=== PATIENT | male | born 1970 | race Caucasian/White ===

== ENCOUNTER 2018-04-11 14:10 | Observation (INO) | payer OTHER, BC ==
[2018-04-11] MEDS ORDERED: Sodium Chloride 0.9% 2.5 ML Syringe FLUSH PRN (14:19)
[2018-04-11] MEDS ORDERED: Ketorolac 30 MG/ML SDV IVPUSH ONE (14:19)
[2018-04-11] MEDS ORDERED: Sodium Chloride 0.9% 1,000 ML IV ONE ×2 (14:19→15:41)
[2018-04-11] MEDS ORDERED: Sodium Chloride 0.9% 10 ML Syringe FLUSH PRN (14:19)
--- NOTE | 2018-04-11 14:23 | EDM.PDOC ---
ED HPI GENERAL MEDICAL PROBLEM - General Chief Complaint: Respiratory Problem Stated Complaint: [place] Time Seen by Provider: 04/11/18 14:15 - History of Present Illness INITIAL COMMENTS - FREE TEXT/NARRATIVE: HISTORY AND PHYSICAL: History of present illness: The patient is a 47-year-old male who was sent from the [facility] for further evaluation as he presented there to be seen for shortness of breath. The patient 's past medical history is significant for allergies for which she takes medications tobacco dependence (chew) and a history of alcohol abuse which he quit in 2016. The patient presented there is saying that he had sinus congestion on 4 days ago with extreme generalized weakness and body aches, and he has had intermittent fevers chills and cough all worse when he's laying down trying to sleep. He used [id number] medications and did feel some improvement and then this morning felt like he had a recurrence of the fever weakness with a sore throat along with a cough and felt like he just couldn't catch his breath. He also was saying that he has been pushing fluids and is tolerating them but and he has had decreased urine output body aches and leg cramps. He also tells me that he has had intermittent vomiting and every time he tries to eat solid food is when he vomits and has explosive diarrhea. He says his weakness is generalized and nonfocal and he has not dizzy or lightheaded but feels very drained and in fact on Wednesday and Wednesday slept most of the day. On their evaluation they noticed that he was not hypoxic but he was tachycardic and they did an EKG showing sinus tachycardia. His blood pressure was normal as was his respiratory rate. He says that when he coughs he does get chest pain but he does not have chest pain without the cough. Of note he also was in [place] recently and returned to the [place] area one week ago. Has no leg pain or swelling. Patient also tells me that when he tries to take deep breaths it triggers a cough which then causes pain and he does not want that to happen so he is taking very shallow breaths. He says he just feels so drained and short of breath with any activity. He says he is making urine and it is not dark in color and there is no hematuria or dysuria. He has no head or neck pain but he does have lower back pain. He denies any flank pain and currently says that his abdomen is not hurting him but he has nausea. Also of note the patient did not get his influenza vaccination this year Review of systems: As per history of present illness and below otherwise all systems reviewed and negative. Past medical history: As per history of present illness and as reviewed below otherwise noncontributory. Surgical history: As per history of present illness and as reviewed below otherwise noncontributory. Social history: No reported history of drug or alcohol abuse. Family history: As per history of present illness and as reviewed below otherwise noncontributory. Physical exam: General: Well-developed well-nourished man who is speaking clearly in the ED without breathlessness or hoarse or muffled voice. Vital signs are noted by me HEENT: Atraumatic, normocephalic, pupils reactive, negative for conjunctival pallor or scleral icterus, mucous membranes moist, throat clear of exudates and uvula is midline and there is only minimal posterior oropharyngeal erythema, there is some anterior cervical adenopathy without posterior adenopathy or nuchal rigidity, there is no sinus tenderness,, neck supple, nontender, trachea midline. Lungs: Sounds are diminished throughout all lung lin but more in the left base and he does not take a very deep breath and exhibits poor effort as he is scared he is going to start coughing, there is no overt wheezing or stridor and no work of breathing, breath sounds equal bilaterally, chest nontender. Heart: S1S2, regular rhythm and slightly tachycardic on my evaluation, negative for clicks, rubs, or JVD. Abdomen: Soft, nondistended, nontender. Negative for masses or hepatosplenomegaly. Negative for costovertebral tenderness. Pelvis: Stable nontender. Genitourinary: Deferred. Rectal: Deferred. Extremities: Atraumatic, negative for cords or calf pain. Neurovascular unremarkable. No pedal edema or leg asymmetry Neuro: Awake, alert, oriented. Cranial nerves II through XII unremarkable. Cerebellum unremarkable. Motor and sensory unremarkable throughout. Exam nonfocal. Diagnostics: EKG influenza swab CBC CMP lactic acid chest x-ray UA stool for culture rapid strep troponin CTA of the chest Therapeutics: IV O2 monitor IV fluids Toradol Zofran duo neb Levaquin Reevaluation the patient is moving air much better and it is no longer diminished in the left base and his O2 sats are 97% with deep breaths. When he is sitting and hypoventilating, because he is still afraid to take a deep breath as it may trigger a cough, he has sats about 93-94%. I discussed with the patient in trying to give me a stool sample due to the diarrhea which he has described as brown in color like chocolate and is soft with some watery component. We also discussed proceeding to do CTA of the chest to rule out an occult pneumonia and any PE although his symptoms do not seem characteristics of a PE and seem more consistent with a viral illness Patient and at bedside are aware of the CTA results and we are still awaiting the lactic acid as they were lab complications with getting that test performed. The patient also give us a stool sample which looked like soft mushy brown stool not watery or grossly abnormal in color or character. On my reevaluation currently the patient is still only satting 92% on room air is we' ll place him on several liters of oxygen and I will call the hospitalist and place him on antibiotics. I will give him a dose of Levaquin here. And in light of his presentation and his clinical dehydration and overall physical presence I will observe him overnight and he is agreeable. 1735: Case was discussed with Dr. Houston who agrees with Levaquin dosing an observation admission. He is aware that we sent a stool for culture and will follow-up that result on the floor. Impression: Pneumonia, clinical dehydration Definitive disposition and diagnosis as appropriate pending reevaluation and review of above. general Pain Score (Numeric/FACES): 4 - Related Data Allergies Allergy/AdvReac Type Severity Reaction Status Date / Time No Known Allergies Allergy Verified 04/16/14 09:57 Home Meds: Home Meds Cetirizine HCl [Allergy Relief] 1 tab PO DAILY 04/16/14 [History] Past Medical History Psychiatric History: Reports: Addiction, Other (See Below) 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 - Past Surgical History GI Surgical History: Reports: Hernia Repair/Other ED ROS GENERAL - Review of Systems Review Of Systems: ROS reveals no pertinent complaints other than HPI. ED EXAM, GENERAL - Physical Exam Exam: See Below (See dictation) Course - Vital Signs Last Recorded V/S: Last Vital Signs Temp 37.3 C 04/11/18 14:17 Pulse 108 H 04/11/18 15:46 Resp 18 04/11/18 15:46 BP 111/82 04/11/18 15:46 Pulse Ox 95 04/11/18 17:27 - Orders/Labs/Meds Orders: Active Orders 24 hr Category Date Time Status Patient Status [ADT] Stat ADT 04/11/18 17:35 Ordered Cardiac Monitoring [RC] . DIRECTED Care 04/11/18 14:17 Active EKG Documentation Completion [RC] STAT Care 04/11/18 14:18 Active Oxygen Therapy, ED [RC] ASDIRECTED Care 04/11/18 14:17 Active Pulse Oximetry [RC] ASDIRECTED Care 04/11/18 14:18 Active RT Aerosol Therapy [RC] ASDIRECTED Care 04/11/18 14:29 Active Chest 2V [CR] Stat Exams 04/11/18 14:18 Taken CULTURE STOOL + CAMPY+SHIGATOX [RM] Stat Lab 04/11/18 17:12 Received CULTURE STREP A CONFIRMATION [RM] Stat Lab 04/11/18 14:40 Results STREP SCRN A RAPID W CULT CONF [RM] Stat Lab 04/11/18 14:40 Results Levofloxacin/Dextrose 5%-Water [Levaquin in D5W 750 MG/ Med 04/11/18 17:34 Ordered 150 ML] 750 mg Premix Bag 1 bag IV ONETIME Sodium Chloride 0.9% @ 150 MLS/HR (1,000ml) Med 04/11/18 17:45 Ordered Sodium Chloride 0.9% [Normal Saline] 1,000 ml IV ASDIRECTED Sodium Chloride 0.9% [Saline Flush] Med 04/11/18 14:19 Active 10 ml FLUSH ASDIRECTED PRN Sodium Chloride 0.9% [Saline Flush] Med 04/11/18 14:19 Active 2.5 ml FLUSH ASDIRECTED PRN Saline Lock Insert [OM.PC] Stat Oth 04/11/18 14:17 Ordered Medication Orders Sodium Chloride (Saline Flush) 10 ml FLUSH ASDIRECTED PRN PRN Reason: Keep Vein Open Sodium Chloride (Saline Flush) 2.5 ml FLUSH ASDIRECTED PRN PRN Reason: Keep Vein Open Labs: Laboratory Tests 03/05/2704/11/18 04/11/18 Range/Units 14:35 14:35 14:35 WBC 4.98 (4.0-11.0) K/uL RBC 4.78 (4.50-5.90) M/uL Hgb 15.3 (13.0-17.0) g/dL Hct 43.7 (38.0-50.0) % MCV 91.4 (80.0-98.0) fL MCH 32.0 (27.0-32.0) pg MCHC 35.0 (31.0-37.0) g/dL RDW Std Deviation 43.8 (28.0-62.0) fl RDW Coeff of Jean 13 (11.0-15.0) % Plt Count 136 L (150-400) K/uL MPV 10.30 (7.40-12.00) fL Neut % (Auto) 63.2 (48.0-80.0) % Lymph % (Auto) 23.5 (16.0-40.0) % [place] % (Auto) 12.9 (0.0-15.0) % Eos % (Auto) 0.2 (0.0-7.0) % Baso % (Auto) 0.2 (0.0-1.5) % Neut # (Auto) 3.2 (1.4-5.7) K/uL Lymph # (Auto) 1.2 (0.6-2.4) K/uL [place] # (Auto) 0.6 (0.0-0.8) K/uL Eos # (Auto) 0.0 (0.0-0.7) K/uL Baso # (Auto) 0.0 (0.0-0.1) K/uL Nucleated RBC % 0.0 /100WBC Nucleated RBCs # 0 K/uL Lactate 0.9 (0.20-2.00) mmol/L Sodium 141 (136-148) mmol/L Potassium 3.6 (3.5-5.1) mmol/L Chloride 103 (98-107) mmol/L Carbon Dioxide 24.6 (21.0-32.0) mmol/L BUN 11 (7.0-18.0) mg/dL Creatinine 1.2 (0.8-1.3) mg/dL Est Cr Clr Drug Dosing 86.58 mL/min Estimated GFR (MDRD) > 60.0 ml/min Glucose 88 (74-106) mg/dL Calcium 8.6 (8.5-10.1) mg/dL Total Bilirubin 0.4 (0.2-1.0) mg/dL AST 45 H (15-37) IU/L ALT 48 (14-63) IU/L Alkaline Phosphatase 81 (46-116) U/L Troponin I (0.000-0.056) ng/mL Total Protein 6.9 (6.4-8.2) g/dL Albumin 4.1 (3.4-5.0) g/dL Globulin 2.8 (2.6-4.0) g/dL Albumin/Globulin Ratio 1.5 (0.9-1.6) Urine Color Urine Appearance Urine pH (5.0-8.0) Ur Specific [place] (1.001-1.035) Urine Protein (NEGATIVE) mg/dL Urine Glucose (UA) (NEGATIVE) mg/dL Urine Ketones (NEGATIVE) mg/dL Urine Occult Blood (NEGATIVE) Urine Nitrite (NEGATIVE) Urine Bilirubin (NEGATIVE) Urine Urobilinogen (<2.0) EU/dL Ur Leukocyte Esterase (NEGATIVE) Urine RBC (0-2/HPF) Urine WBC (0-5/HPF) Ur Epithelial Cells (NONE-FEW) Urine Bacteria (NEGATIVE) Urine Mucus (NONE-MOD) 04/11/18 04/11/18 Range/Units 14:35 15:40 WBC (4.0-11.0) K/uL RBC (4.50-5.90) M/uL Hgb (13.0-17.0) g/dL Hct (38.0-50.0) % MCV (80.0-98.0) fL MCH (27.0-32.0) pg MCHC (31.0-37.0) g/dL RDW Std Deviation (28.0-62.0) fl RDW Coeff of Jean (11.0-15.0) % Plt Count (150-400) K/uL MPV (7.40-12.00) fL Neut % (Auto) (48.0-80.0) % Lymph % (Auto) (16.0-40.0) % [place] % (Auto) (0.0-15.0) % Eos % (Auto) (0.0-7.0) % Baso % (Auto) (0.0-1.5) % Neut # (Auto) (1.4-5.7) K/uL Lymph # (Auto) (0.6-2.4) K/uL [place] # (Auto) (0.0-0.8) K/uL Eos # (Auto) (0.0-0.7) K/uL Baso # (Auto) (0.0-0.1) K/uL Nucleated RBC % /100WBC Nucleated RBCs # K/uL Lactate (0.20-2.00) mmol/L Sodium (136-148) mmol/L Potassium (3.5-5.1) mmol/L Chloride (98-107) mmol/L Carbon Dioxide (21.0-32.0) mmol/L BUN (7.0-18.0) mg/dL Creatinine (0.8-1.3) mg/dL Est Cr Clr Drug Dosing mL/min Estimated GFR (MDRD) ml/min Glucose (74-106) mg/dL Calcium (8.5-10.1) mg/dL Total Bilirubin (0.2-1.0) mg/dL AST (15-37) IU/L ALT (14-63) IU/L Alkaline Phosphatase (46-116) U/L Troponin I < 0.050 (0.000-0.056) ng/mL Total Protein (6.4-8.2) g/dL Albumin (3.4-5.0) g/dL Globulin (2.6-4.0) g/dL Albumin/Globulin Ratio (0.9-1.6) Urine Color YELLOW Urine Appearance CLEAR Urine pH 5.5 (5.0-8.0) Ur Specific [place] >= 1.030 (1.001-1.035) Urine Protein TRACE H (NEGATIVE) mg/dL Urine Glucose (UA) NEGATIVE (NEGATIVE) mg/dL Urine Ketones 15 H (NEGATIVE) mg/dL Urine Occult Blood SMALL H (NEGATIVE) Urine Nitrite NEGATIVE (NEGATIVE) Urine Bilirubin NEGATIVE (NEGATIVE) Urine Urobilinogen 0.2 (<2.0) EU/dL Ur Leukocyte Esterase NEGATIVE (NEGATIVE) Urine RBC 0-2 (0-2/HPF) Urine WBC 0-1 (0-5/HPF) Ur Epithelial Cells RARE (NONE-FEW) Urine Bacteria FEW (NEGATIVE) Urine Mucus LIGHT (NONE-MOD) Meds: Medications Generic Name Dose Route Start Last Admin Trade Name Mar PRN Reason Stop Dose Admin Sodium Chloride 10 ml 04/11/18 14:19 Saline Flush FLUSH ASDIRECTED PRN Keep Vein Open Sodium Chloride 2.5 ml 04/11/18 14:19 Saline Flush FLUSH ASDIRECTED PRN Keep Vein Open Discontinued Medications Generic Name Dose Route Start Last Admin Trade Name Mar PRN Reason Stop Dose Admin Albuterol/Ipratropium 3 ml 04/11/18 14:29 04/11/18 14:40 Duoneb 3.0-0.5 Mg/3 Ml NEB 04/11/18 14:30 3 ml ONETIME ONE Administration Sodium Chloride 1,000 mls @ 999 mls/hr 04/11/18 14:19 04/11/18 14:40 Normal Saline IV 04/11/18 15:19 999 mls/hr STAT ONE Administration Sodium Chloride 1,000 mls @ 999 mls/hr 04/11/18 15:41 04/11/18 15:45 Normal Saline IV 04/11/18 16:41 999 mls/hr STAT ONE Administration Iopamidol 50 ml 04/11/18 16:51 04/11/18 16:51 Isovue-370 (76%) IV 04/11/18 16:52 50 ml ONETIME ONE Administration Ketorolac Tromethamine 30 mg 04/11/18 14:19 04/11/18 14:48 Toradol IVPUSH 04/11/18 14:20 30 mg ONETIME ONE Administration Ondansetron HCl 4 mg 04/11/18 14:29 04/11/18 14:48 Zofran IVPUSH 04/11/18 14:30 4 mg ONETIME ONE Administration Departure - Departure Time of Disposition: 17:36 Disposition: Refer to Observation Condition: Good Clinical Impression: Pneumonia Qualifiers: Pneumonia type: due to unspecified organism Laterality: right Lung location: lower lobe of lung Qualified Code(s): J18.1 - Lobar pneumonia, unspecified organism - Discharge Information Referrals: [facility] [Primary Care Provider] - Forms: ED Department Discharge - My Orders Last 24 Hours: My Active Orders 04/11/18 14:17 Cardiac Monitoring [RC] . DIRECTED Oxygen Therapy, ED [RC] ASDIRECTED Saline Lock Insert [OM.PC] Stat 04/11/18 14:18 EKG Documentation Completion [RC] STAT Pulse Oximetry [RC] ASDIRECTED Chest 2V [CR] Stat 04/11/18 14:19 Sodium Chloride 0.9% [Saline Flush] 10 ml FLUSH ASDIRECTED PRN Sodium Chloride 0.9% [Saline Flush] 2.5 ml FLUSH ASDIRECTED PRN 04/11/18 14:29 RT Aerosol Therapy [RC] ASDIRECTED 04/11/18 14:40 CULTURE STREP A CONFIRMATION [RM] Stat STREP SCRN A RAPID W CULT CONF [RM] Stat 04/11/18 17:12 CULTURE STOOL + CAMPY+SHIGATOX [RM] Stat 04/11/18 17:34 Levofloxacin/Dextrose 5%-Water [Levaquin in D5W 750 MG/150 ML] 750 mg Premix Bag 1 bag IV ONETIME 04/11/18 17:35 Patient Status [ADT] Stat 04/11/18 17:45 Sodium Chloride 0.9% @ 150 MLS/HR (1,000ml) Sodium Chloride 0.9% [Normal Saline ] 1,000 ml IV ASDIRECTED - Assessment/Plan Last 24 Hours: My Active Orders 04/11/18 14:17 Cardiac Monitoring [RC] . DIRECTED Oxygen Therapy, ED [RC] ASDIRECTED Saline Lock Insert [OM.PC] Stat 04/11/18 14:18 EKG Documentation Completion [RC] STAT Pulse Oximetry [RC] ASDIRECTED Chest 2V [CR] Stat 04/11/18 14:19 Sodium Chloride 0.9% [Saline Flush] 10 ml FLUSH ASDIRECTED PRN Sodium Chloride 0.9% [Saline Flush] 2.5 ml FLUSH ASDIRECTED PRN 04/11/18 14:29 RT Aerosol Therapy [RC] ASDIRECTED 04/11/18 14:40 CULTURE STREP A CONFIRMATION [RM] Stat STREP SCRN A RAPID W CULT CONF [RM] Stat 04/11/18 17:12 CULTURE STOOL + CAMPY+SHIGATOX [RM] Stat 04/11/18 17:34 Levofloxacin/Dextrose 5%-Water [Levaquin in D5W 750 MG/150 ML] 750 mg Premix Bag 1 bag IV ONETIME 04/11/18 17:35 Patient Status [ADT] Stat 04/11/18 17:45 Sodium Chloride 0.9% @ 150 MLS/HR (1,000ml) Sodium Chloride 0.9% [Normal Saline ] 1,000 ml IV ASDIRECTED
[2018-04-11] MEDS ORDERED: Albuterol/Ipratropium 3.0-0.5 MG/3 ML Neb Soln NEB ONE (14:29)
[2018-04-11] MEDS ORDERED: Ondansetron 4 MG/2 ML SDV IVPUSH ONE (14:29)
[2018-04-11 15:15] LABS: CHLORIDE,CL 103 mmol/L (98-107); SODIUM,NA 141 mmol/L (136-148)
[2018-04-11] MEDS ORDERED: Iopamidol 755 MG/ML 50 ML Bottle IV ONE (16:51)
--- NOTE | 2018-04-11 17:22 | CT ---
INDICATION: Shortness of breath. Rule out occult pneumonia or pulmonary embolism. COMPARISON: None available TECHNIQUE: CT examination of the chest was performed with the uneventful intravenous administration of 50 cc of Isovue 370 while 3 mm thick axial sections were obtained through the pulmonary arteries. Please note that all CT scans at this facility use dose modulation, iterative reconstruction, and/or weight-based dosing when appropriate to reduce radiation dose to as low as reasonably achievable. FINDINGS: : There is no sign of pulmonary embolism, with normal enhancement and branching of the pulmonary arteries. There is mild patchy infiltrate in the posterior-lateral right lung base, which could be an area of early pneumonia. There is mild linear density in the left lung base consistent with atelectasis. There is no sign of mediastinal or hilar mass or adenopathy. The heart and great vessels are normal in appearance. There is no sign of SUPRACLAVICULAR/AXILLARY mass or adenopathy. The visualized superior liver is seem to have a low-density region in the dome of the right lobe of the liver, in the anterior segment, segment 8 measuring at least 1.9 centimeters. This is not completely examined on today`s study. The appearance is nonspecific, but this could simply be a cyst. The rest of the visualized superior liver is normal in appearance. The visualized superior spleen is normal in appearance. There is mild scoliosis of the upper lumbar spine convex towards the left. IMPRESSION: No sign of pulmonary embolism. Mild patchy infiltrate in the posterior right lung base which could be an early area of right lower lobe pneumonia. Mild linear density in the posterior left lung base consistent with atelectasis. Please note that all CT scans at this facility use dose modulation, iterative reconstruction, and/or weight-based dosing when appropriate to reduce radiation dose to as low as reasonably achievable. Dictated by Radames Tobar MD @ Apr 11 2018 5:13PM Signed by Dr. Radames Tobar @ Apr 11 2018 5:19PM
[2018-04-11] MEDS ORDERED: Levofloxacin/Dextrose 5%-Water 750 MG in Premix Bag 1 BAG IV ONE (17:34)
[2018-04-11] MEDS ORDERED: Sodium Chloride 0.9% 1,000 ML IV SCH (17:45)
[2018-04-11] MEDS ORDERED: Temazepam 15 MG Cap PO PRN (18:34)
[2018-04-11] MEDS ORDERED: Ondansetron 4 MG Tab.DIS PO PRN (18:34)
[2018-04-11] MEDS ORDERED: Albuterol/Ipratropium 3.0-0.5 MG/3 ML Neb Soln NEB PRN (18:34)
[2018-04-11] MEDS ORDERED: Docusate Sodium 100 MG Cap PO PRN (18:34)
--- NOTE | 2018-04-11 18:38 | PCM.HP ---
H&P History of Present Illness - General Date of Service: 04/11/18 Admit Problem/Dx: Admission Diagnosis/Problem Admission Diagnosis/Problem Pneumonia Source of Information: Patient, Family History Limitations: Reports: No Limitations - History of Present Illness Initial Comments - Free Text/Narative: The patient is 47-year-old gentleman who presented to the emergency department after being referred to the emergency department from the [place] [facility]. Patient reports that for the past week he has not been feeling well. The patient says that he got back from a trip and had been exposed to sick people. The patient had traveled from [place]. 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 The patient also has had fever and chills while at home. He said at one point he completely soaked through his clothes while in his truck. The patient has been complaining of severe shortness of breath as well. He reports that he has been unable to walk more than 10-15 feet without having to stop to rest. He also says that he feels dehydrated. The patient had a CT scan which reported mild patchy infiltrate in the posterior lateral right lung base consistent with an early pneumonia. Was no signs of PE. The patient has no other complaints at the present time. Onset of Symptoms: Reports: Gradual Duration of Symptoms: Reports: Week(s): Location: Reports: Chest Severity: Moderate Improves with: Reports: Rest Worsens with: Reports: Movement Context: Reports: Sick Contact, Travel Associated Symptoms: Reports: Diaphoresis, Fever/Chills, Loss of Appetite, Other (Diarrhea) general Pain Score (Numeric/FACES): 4 - Related Data Allergies/Adverse Reactions: Allergies Allergy/AdvReac Type Severity Reaction Status Date / Time No Known Allergies Allergy Verified 04/16/14 09:57 Home Medications: Home Meds Cetirizine HCl [Allergy Relief] 1 tab PO DAILY 04/16/14 [History] Past Medical History HEENT History: Reports: Allergic Rhinitis Cardiovascular History: Reports: None Respiratory History: Reports: None Gastrointestinal History: Reports: None Genitourinary History: Reports: None Musculoskeletal History: Reports: None Neurological History: Reports: Head Trauma Psychiatric History: Reports: Addiction, Other (See Below) 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 Endocrine/Metabolic History: Reports: None Hematologic History: Reports: None Immunologic History: Reports: None Oncologic (Cancer) History: Reports: None Dermatologic History: Reports: None - Infectious Disease History Infectious Disease History: Reports: None - Past Surgical History GI Surgical History: Reports: Hernia Repair/Other Social & Family History - Family History Family Medical History: Noncontributory - Tobacco Use Smoking Status *Q: Current Every Day Smoker Tobacco Use Within Last Twelve Months: Smokeless Tobacco Years of Tobacco use: 34 Packs/Tins Daily: 1 Second Hand Smoke Exposure: No - Caffeine Use Caffeine Use: Reports: Coffee, Soda - Recreational Drug Use Recreational Drug Use: No - Living Situation & Occupation Living situation: Reports: , with Spouse Occupation: Employed H&P Review of Systems - Review of Systems: Review Of Systems: See Below General: Reports: Fever, Chills, Weakness, Diaphoresis HEENT: Reports: Headaches Pulmonary: Reports: Shortness of Breath, Cough Cardiovascular: Reports: No Symptoms Gastrointestinal: Reports: Diarrhea Genitourinary: Reports: No Symptoms Musculoskeletal: Reports: Muscle Pain Skin: Reports: No Symptoms Psychiatric: Reports: No Symptoms Neurological: Reports: No Symptoms Hematologic/Lymphatic: Reports: No Symptoms Immunologic: Reports: No Symptoms Exam - Exam Exam: See Below - Vital Signs Vital Signs: Last Vital Signs Temp 37.4 C 04/11/18 18:10 Pulse 98 04/11/18 18:10 Resp 16 04/11/18 18:10 BP 120/82 04/11/18 18:10 Pulse Ox 94 L 04/11/18 18:10 Weight: 97.114 kg - Exam Quality Assessment: No: Supplemental Oxygen General: Alert, Oriented, Cooperative, Mild Distress HEENT: Conjunctiva Clear, EACs Clear, EOMI, Mucosa Moist & Ubly, Nares Patent, Posterior Pharynx Clear, PERRLA Neck: Supple, Trachea Midline Lungs: Normal Respiratory Effort, Rales (Right lower lobe) Cardiovascular: Regular Rate, Regular Rhythm GI/Abdominal Exam: Normal Bowel Sounds, Soft, Non-Tender, No Distention. No: Guarding, Rigid, Rebound (Male) Exam: Deferred Rectal (Males) Exam: Deferred Back Exam: Normal Inspection, Full Range of Motion Extremities: Normal Inspection, Normal Range of Motion, No Pedal Edema Skin: Warm, Dry, Intact Neurological: Cranial Nerves Intact Psychiatric: Alert, Normal Affect, Normal Mood - Patient Data Lab Results Last 24 hrs: Laboratory Results - last 24 hr 04/11/18 04/11/18 04/11/18 Range/Units 14:35 14:35 14:35 WBC 4.98 (4.0-11.0) K/uL RBC 4.78 (4.50-5.90) M/uL Hgb 15.3 (13.0-17.0) g/dL Hct 43.7 (38.0-50.0) % MCV 91.4 (80.0-98.0) fL MCH 32.0 (27.0-32.0) pg MCHC 35.0 (31.0-37.0) g/dL RDW Std Deviation 43.8 (28.0-62.0) fl RDW Coeff of Jean 13 (11.0-15.0) % Plt Count 136 L (150-400) K/uL MPV 10.30 (7.40-12.00) fL Neut % (Auto) 63.2 (48.0-80.0) % Lymph % (Auto) 23.5 (16.0-40.0) % [place] % (Auto) 12.9 (0.0-15.0) % Eos % (Auto) 0.2 (0.0-7.0) % Baso % (Auto) 0.2 (0.0-1.5) % Neut # (Auto) 3.2 (1.4-5.7) K/uL Lymph # (Auto) 1.2 (0.6-2.4) K/uL [place] # (Auto) 0.6 (0.0-0.8) K/uL Eos # (Auto) 0.0 (0.0-0.7) K/uL Baso # (Auto) 0.0 (0.0-0.1) K/uL Nucleated RBC % 0.0 /100WBC Nucleated RBCs # 0 K/uL Lactate 0.9 (0.20-2.00) mmol/L Sodium 141 (136-148) mmol/L Potassium 3.6 (3.5-5.1) mmol/L Chloride 103 (98-107) mmol/L Carbon Dioxide 24.6 (21.0-32.0) mmol/L BUN 11 (7.0-18.0) mg/dL Creatinine 1.2 (0.8-1.3) mg/dL Est Cr Clr Drug Dosing 86.58 mL/min Estimated GFR (MDRD) > 60.0 ml/min Glucose 88 (74-106) mg/dL Calcium 8.6 (8.5-10.1) mg/dL Total Bilirubin 0.4 (0.2-1.0) mg/dL AST 45 H (15-37) IU/L ALT 48 (14-63) IU/L Alkaline Phosphatase 81 (46-116) U/L Troponin I (0.000-0.056) ng/mL Total Protein 6.9 (6.4-8.2) g/dL Albumin 4.1 (3.4-5.0) g/dL Globulin 2.8 (2.6-4.0) g/dL Albumin/Globulin Ratio 1.5 (0.9-1.6) Urine Color Urine Appearance Urine pH (5.0-8.0) Ur Specific [place] (1.001-1.035) Urine Protein (NEGATIVE) mg/dL Urine Glucose (UA) (NEGATIVE) mg/dL Urine Ketones (NEGATIVE) mg/dL Urine Occult Blood (NEGATIVE) Urine Nitrite (NEGATIVE) Urine Bilirubin (NEGATIVE) Urine Urobilinogen (<2.0) EU/dL Ur Leukocyte Esterase (NEGATIVE) Urine RBC (0-2/HPF) Urine WBC (0-5/HPF) Ur Epithelial Cells (NONE-FEW) Urine Bacteria (NEGATIVE) Urine Mucus (NONE-MOD) 04/11/18 04/11/18 Range/Units 14:35 15:40 WBC (4.0-11.0) K/uL RBC (4.50-5.90) M/uL Hgb (13.0-17.0) g/dL Hct (38.0-50.0) % MCV (80.0-98.0) fL MCH (27.0-32.0) pg MCHC (31.0-37.0) g/dL RDW Std Deviation (28.0-62.0) fl RDW Coeff of Jean (11.0-15.0) % Plt Count (150-400) K/uL MPV (7.40-12.00) fL Neut % (Auto) (48.0-80.0) % Lymph % (Auto) (16.0-40.0) % [place] % (Auto) (0.0-15.0) % Eos % (Auto) (0.0-7.0) % Baso % (Auto) (0.0-1.5) % Neut # (Auto) (1.4-5.7) K/uL Lymph # (Auto) (0.6-2.4) K/uL [place] # (Auto) (0.0-0.8) K/uL Eos # (Auto) (0.0-0.7) K/uL Baso # (Auto) (0.0-0.1) K/uL Nucleated RBC % /100WBC Nucleated RBCs # K/uL Lactate (0.20-2.00) mmol/L Sodium (136-148) mmol/L Potassium (3.5-5.1) mmol/L Chloride (98-107) mmol/L Carbon Dioxide (21.0-32.0) mmol/L BUN (7.0-18.0) mg/dL Creatinine (0.8-1.3) mg/dL Est Cr Clr Drug Dosing mL/min Estimated GFR (MDRD) ml/min Glucose (74-106) mg/dL Calcium (8.5-10.1) mg/dL Total Bilirubin (0.2-1.0) mg/dL AST (15-37) IU/L ALT (14-63) IU/L Alkaline Phosphatase (46-116) U/L Troponin I < 0.050 (0.000-0.056) ng/mL Total Protein (6.4-8.2) g/dL Albumin (3.4-5.0) g/dL Globulin (2.6-4.0) g/dL Albumin/Globulin Ratio (0.9-1.6) Urine Color YELLOW Urine Appearance CLEAR Urine pH 5.5 (5.0-8.0) Ur Specific [place] >= 1.030 (1.001-1.035) Urine Protein TRACE H (NEGATIVE) mg/dL Urine Glucose (UA) NEGATIVE (NEGATIVE) mg/dL Urine Ketones 15 H (NEGATIVE) mg/dL Urine Occult Blood SMALL H (NEGATIVE) Urine Nitrite NEGATIVE (NEGATIVE) Urine Bilirubin NEGATIVE (NEGATIVE) Urine Urobilinogen 0.2 (<2.0) EU/dL Ur Leukocyte Esterase NEGATIVE (NEGATIVE) Urine RBC 0-2 (0-2/HPF) Urine WBC 0-1 (0-5/HPF) Ur Epithelial Cells RARE (NONE-FEW) Urine Bacteria FEW (NEGATIVE) Urine Mucus LIGHT (NONE-MOD) Result Diagrams: 04/11/18 14:35 04/11/18 14:35 [place] Results Last 24 hrs: Microbiology 04/11/18 17:12 Campylobacter Antigen Assay - Final Stool / Feces Positive Campylobacter Ag 04/11/18 14:40 Influenza Type A Antigen Screen - Final Nasopharyngeal Swab NEGATIVE INFLUENZA A VIRUS AG Influenza Type B Antigen Screen - Final NEGATIVE INFLUENZA B VIRUS AG 04/11/18 14:40 Group A Streptococcus Rapid Screen - Final Throat NEGATIVE STREP A SCREEN EKG INTERPRETATION EKG Date: 04/11/18 Rhythm: NSR [place]: Normal P-Wave: Present QRS: Normal ST-T: Normal QT: Normal Comparison: NA - No Prior EKG - Problem List (1) Pneumonia SNOMED Code(s): 237425575 ICD Code: J18.9 - PNEUMONIA, UNSPECIFIED ORGANISM Status: Acute Priority : High Current Visit: Yes Qualifiers: Pneumonia type: due to unspecified organism Laterality: right Lung location: lower lobe of lung Qualified Code(s): J18.1 - Lobar pneumonia, unspecified organism (2) Dyspnea and respiratory abnormality SNOMED Code(s): 171458848 ICD Code: R06.00 - DYSPNEA, UNSPECIFIED; R06.89 - OTHER ABNORMALITIES OF BREATHING Status: Acute Priority: High Current Visit: Yes (3) Dehydration SNOMED Code(s): 61538994 ICD Code: E86.0 - DEHYDRATION Status: Acute Priority: High Current Visit: Yes (4) Nausea vomiting and diarrhea SNOMED Code(s): 2127197 ICD Code: R11.2 - NAUSEA WITH VOMITING, UNSPECIFIED; R19.7 - DIARRHEA, UNSPECIFIED Status: Acute Priority: High Current Visit: Yes (5) Campylobacter diarrhea SNOMED Code(s): 99544965 ICD Code: A04.5 - CAMPYLOBACTER ENTERITIS Status: Acute Priority: High Current Visit: Yes (6) Tobacco abuse disorder SNOMED Code(s): 892415872 ICD Code: Z72.0 - TOBACCO USE Status: Chronic Priority: Medium Current Visit: Yes Problem List Initiated/Reviewed/Updated: Yes Orders Last 24hrs: Active Orders 24 hr Category Date Time Status Patient Status [ADT] Stat ADT 04/11/18 17:35 Active Cardiac Monitoring [RC] . DIRECTED Care 04/11/18 14:17 Active EKG Documentation Completion [RC] STAT Care 04/11/18 14:18 Active Oxygen Therapy [RC] PRN Care 04/11/18 18:34 Ordered Oxygen Therapy, ED [RC] ASDIRECTED Care 04/11/18 14:17 Active Pulse Oximetry [RC] ASDIRECTED Care 04/11/18 14:18 Active RT Aerosol Therapy [RC] ASDIRECTED Care 04/11/18 14:29 Active RT Aerosol Therapy [RC] ASDIRECTED Care 04/11/18 18:37 Ordered Up ad Екатерина [RC] ASDIRECTED Care 04/11/18 18:34 Ordered VTE/DVT Education [RC] PER UNIT ROUTINE Care 04/11/18 18:34 Ordered Vital Signs [RC] Q4H Care 04/11/18 18:34 Ordered Regular Diet [DIET] Diet 04/11/18 Breakfast Ordered Chest 2V [CR] Stat Exams 04/11/18 14:18 Taken C-REACTIVE PROTEIN [CHEM] AM Lab 04/12/18 05:11 Ordered CBC WITH AUTO DIFF [HEME] AM Lab 04/12/18 05:11 Ordered COMPREHENSIVE METABOLIC PN,CMP [CHEM] AM Lab 04/12/18 05:11 Ordered CULTURE STOOL + CAMPY+SHIGATOX [] Stat Lab 04/11/18 17:12 Received CULTURE STREP A CONFIRMATION [RM] Stat Lab 04/11/18 14:40 Results STREP SCRN A RAPID W CULT CONF [] Stat Lab 04/11/18 14:40 Results Acetaminophen [Tylenol] Med 04/11/18 18:34 Ordered 650 mg PO Q4H PRN Albuterol/Ipratropium [DuoNeb 3.0-0.5 MG/3 ML] Med 04/11/18 18:34 Ordered 3 ml NEB Q4HRRT PRN Docusate Sodium [Colace] Med 04/11/18 18:34 Ordered 100 mg PO BID PRN Enoxaparin [Lovenox] Med 04/11/18 18:45 Ordered 30 mg SUBCUT Q24H Levofloxacin/Dextrose 5%-Water [Levaquin in D5W 750 MG/ Med 04/11/18 17:34 Active 150 ML] 750 mg Premix Bag 1 bag IV ONETIME Ondansetron [Zofran ODT] Med 04/11/18 18:34 Ordered 4 mg PO Q4H PRN Sodium Chloride 0.9% [Normal Saline] 1,000 ml Med 04/11/18 17:45 Active IV ASDIRECTED Sodium Chloride 0.9% [Saline Flush] Med 04/11/18 14:19 Active 10 ml FLUSH ASDIRECTED PRN Sodium Chloride 0.9% [Saline Flush] Med 04/11/18 14:19 Active 2.5 ml FLUSH ASDIRECTED PRN Temazepam [Restoril] Med 04/11/18 18:34 Ordered 15 mg PO BEDTIME PRN oxyCODONE Med 04/11/18 18:34 Ordered 5 mg PO Q4H PRN Saline Lock Insert [OM.PC] Stat Oth 04/11/18 14:17 Ordered Resuscitation Status Routine Resus Stat 04/11/18 18:34 Ordered Medication Orders Levofloxacin/Dextrose 750 mg/ (Premix) 150 mls @ 100 mls/hr IV ONETIME ONE Stop: 04/11/18 19:03 Last Admin: 04/11/18 17:40 Dose: 100 mls/hr Sodium Chloride (Normal Saline) 1,000 mls @ 150 mls/hr IV ASDIRECTED [facility] Last Admin: 04/11/18 17:41 Dose: 150 mls/hr Sodium Chloride (Saline Flush) 10 ml FLUSH ASDIRECTED PRN PRN Reason: Keep Vein Open Sodium Chloride (Saline Flush) 2.5 ml FLUSH ASDIRECTED PRN PRN Reason: Keep Vein Open Assessment/Plan Comment:: The patient is a 47-year-old gentleman who had been admitted secondary to right lower lobe pneumonia which was discovered on chest CT scan. The patient also was positive for Campylobacter on stool studies. The patient has been started on Levaquin which should also cover the Campylobacter as well as pneumonia. He' ll be kept on oxygen support to help keep his oxygen saturations up. He's also been afforded albuterol Atrovent nebs to help with his shortness of breath. I suspect this is more objective for now. The patient is also significantly dehydrated as indicated by his urinalysis with a concentrated urinary specific gravity. He'll be fluid resuscitated with IV normal saline at 125 mL per hour. I 've ordered repeat laboratory studies for the morning. He's been encouraged to ambulate. I've also place the patient on Lovenox for DVT prophylaxis. Patient should be appropriate for discharge in 1-2 days. I discussed plan of care with the patient and his .
[2018-04-11] MEDS ORDERED: Enoxaparin 30 MG/0.3 ML Syringe SUBCUT SCH (18:45)
[2018-04-11] MEDS: Nicotine 14 MG/24 Hr Patch TRDERM SCH (20:24)
[2018-04-12] MEDS: Sodium Chloride 0.9% 1,000 ML IV SCH ×3 (03:11→23:57)
[2018-04-12 05:53] LABS: CHLORIDE,CL 107 mmol/L (98-107); SODIUM,NA 140 mmol/L (136-148)
[2018-04-12] MEDS: Nicotine 14 MG/24 Hr Patch TRDERM SCH (08:58)
[2018-04-12] MEDS: Oseltamivir 75 MG Cap PO SCH ×2 (10:19→21:10)
[2018-04-12] MEDS ORDERED: Sodium Chloride 0.9% 1,000 ML IV ONE (10:52)
--- NOTE | 2018-04-12 11:23 | CR ---
EXAM DATE: 04/11/18 PATIENT'S AGE: 47 Patient: HONEY SANCHEZ Facility: [facility] Site . Site : [id number] Study: XRay-Chest [id number]/4/2019 3:15:46 PM Ordering Physician: SHELLY SCHOFIELD MD Final Report: INDICATION: Chest pain with shortness of breath. COMPARISON: 05/01/2015 FINDINGS: PA and lateral views of the chest were obtained. The lungs remain clear. No focal or diffuse infiltrates are present. The heart remains normal in size. The mediastinum is normal in appearance. The osseous structures are normal in appearance for the patient`s age. IMPRESSION: Normal chest two views. Dictated by Radames Tobar MD @ Apr 11 2018 3:52PM Signed by: Radames Tobar MD @04/11/2018 3:53:58 PM (Electronic Signature) Report Signed by Proxy. [email or web address]
--- NOTE | 2018-04-12 11:28 | PCM.PN ---
- General Info Date of Service: 04/12/18 Admission Dx/Problem (Free Text): Admission Diagnosis/Problem Admission Diagnosis/Problem Pneumonia Subjective Update: Feeling slightly improved today, but still very weak feeling. Shortness of breath slightly improved, only walking to bathroom and back. No chest pain. Some sinus pressure. Diarrhea improved. Functional Status: Reports: Pain Controlled, Tolerating Diet, Ambulating, Urinating - Review of Systems General: Reports: Weakness (generalized.), Malaise. Denies: Fever, Fatigue HEENT: Reports: Headaches (frontal), Sinus Congestion (with sinus pressure), Sore Throat. Denies: Ear Pain, Visual Changes Pulmonary: Reports: Cough. Denies: Shortness of Breath, Sputum, Wheezing Cardiovascular: Reports: No Symptoms. Denies: Chest Pain Gastrointestinal: Reports: No Symptoms. Denies: Abdominal Pain, Nausea, Vomiting Genitourinary: Reports: No Symptoms. Denies: Dysuria, Frequency, Burning Musculoskeletal: Reports: No Symptoms. Denies: Neck Pain Neurological: Reports: No Symptoms Psychiatric: Reports: No Symptoms - Patient Data Vitals - Most Recent: Last Vital Signs Temp 97.7 F 04/12/18 08:56 Pulse 87 04/12/18 03:11 Resp 18 04/12/18 08:56 BP 124/82 04/12/18 08:56 Pulse Ox 96 04/12/18 03:11 Weight - Most Recent: 97.114 kg I&O - Last 24 Hours: Intake & Output 04/11/18 04/12/18 04/12/18 22:59 06:59 14:59 Intake Total 1778 Output Total 1300 Balance 478 Lab Results Last 24 Hours: Laboratory Results - last 24 hr 04/11/18 04/11/18 04/11/18 Range/Units 14:35 14:35 14:35 WBC 4.98 (4.0-11.0) K/uL RBC 4.78 (4.50-5.90) M/uL Hgb 15.3 (13.0-17.0) g/dL Hct 43.7 (38.0-50.0) % MCV 91.4 (80.0-98.0) fL MCH 32.0 (27.0-32.0) pg MCHC 35.0 (31.0-37.0) g/dL RDW Std Deviation 43.8 (28.0-62.0) fl RDW Coeff of Jean 13 (11.0-15.0) % Plt Count 136 L (150-400) K/uL MPV 10.30 (7.40-12.00) fL Neut % (Auto) 63.2 (48.0-80.0) % Lymph % (Auto) 23.5 (16.0-40.0) % [place] % (Auto) 12.9 (0.0-15.0) % Eos % (Auto) 0.2 (0.0-7.0) % Baso % (Auto) 0.2 (0.0-1.5) % Neut # (Auto) 3.2 (1.4-5.7) K/uL Lymph # (Auto) 1.2 (0.6-2.4) K/uL [place] # (Auto) 0.6 (0.0-0.8) K/uL Eos # (Auto) 0.0 (0.0-0.7) K/uL Baso # (Auto) 0.0 (0.0-0.1) K/uL Add Manual Diff Neutrophils % (Manual) (48.0-80.0) % Band Neutrophils % % Lymphocytes % (Manual) (16.0-40.0) % Monocytes % (Manual) (0.0-15.0) % Nucleated RBC % 0.0 /100WBC Absolute Seg Neuts (1.4-5.7) Band Neutrophils # Lymphocytes # (Manual) (0.6-2.4) Monocytes # (Manual) (0.0-0.8) Nucleated RBCs # 0 K/uL Lactate 0.9 (0.20-2.00) mmol/L Sodium 141 (136-148) mmol/L Potassium 3.6 (3.5-5.1) mmol/L Chloride 103 (98-107) mmol/L Carbon Dioxide 24.6 (21.0-32.0) mmol/L BUN 11 (7.0-18.0) mg/dL Creatinine 1.2 (0.8-1.3) mg/dL Est Cr Clr Drug Dosing 86.58 mL/min Estimated GFR (MDRD) > 60.0 ml/min Glucose 88 (74-106) mg/dL Calcium 8.6 (8.5-10.1) mg/dL Total Bilirubin 0.4 (0.2-1.0) mg/dL AST 45 H (15-37) IU/L ALT 48 (14-63) IU/L Alkaline Phosphatase 81 (46-116) U/L Creatine Kinase (26-308) U/L Troponin I (0.000-0.056) ng/mL C-Reactive Protein (0.00-0.90) mg/dL Total Protein 6.9 (6.4-8.2) g/dL Albumin 4.1 (3.4-5.0) g/dL Globulin 2.8 (2.6-4.0) g/dL Albumin/Globulin Ratio 1.5 (0.9-1.6) Urine Color Urine Appearance Urine pH (5.0-8.0) Ur Specific [place] (1.001-1.035) Urine Protein (NEGATIVE) mg/dL Urine Glucose (UA) (NEGATIVE) mg/dL Urine Ketones (NEGATIVE) mg/dL Urine Occult Blood (NEGATIVE) Urine Nitrite (NEGATIVE) Urine Bilirubin (NEGATIVE) Urine Urobilinogen (<2.0) EU/dL Ur Leukocyte Esterase (NEGATIVE) Urine RBC (0-2/HPF) Urine WBC (0-5/HPF) Ur Epithelial Cells (NONE-FEW) Urine Bacteria (NEGATIVE) Urine Mucus (NONE-MOD) 04/11/18 04/11/18 04/12/18 Range/Units 14:35 15:40 05:15 WBC 3.38 L (4.0-11.0) K/uL RBC 3.92 L (4.50-5.90) M/uL Hgb 12.4 L (13.0-17.0) g/dL Hct 36.0 L (38.0-50.0) % MCV 91.8 (80.0-98.0) fL MCH 31.6 (27.0-32.0) pg MCHC 34.4 (31.0-37.0) g/dL RDW Std Deviation 44.2 (28.0-62.0) fl RDW Coeff of Jean 13 (11.0-15.0) % Plt Count 105 L (150-400) K/uL MPV 9.80 (7.40-12.00) fL Neut % (Auto) (48.0-80.0) % Lymph % (Auto) (16.0-40.0) % [place] % (Auto) (0.0-15.0) % Eos % (Auto) (0.0-7.0) % Baso % (Auto) (0.0-1.5) % Neut # (Auto) (1.4-5.7) K/uL Lymph # (Auto) (0.6-2.4) K/uL [place] # (Auto) (0.0-0.8) K/uL Eos # (Auto) (0.0-0.7) K/uL Baso # (Auto) (0.0-0.1) K/uL Add Manual Diff YES Neutrophils % (Manual) 43 L (48.0-80.0) % Band Neutrophils % 6 % Lymphocytes % (Manual) 42 H (16.0-40.0) % Monocytes % (Manual) 9 (0.0-15.0) % Nucleated RBC % 0.0 /100WBC Absolute Seg Neuts 1.5 (1.4-5.7) Band Neutrophils # 0.2 Lymphocytes # (Manual) 1.4 (0.6-2.4) Monocytes # (Manual) 0.3 (0.0-0.8) Nucleated RBCs # 0 K/uL Lactate (0.20-2.00) mmol/L Sodium (136-148) mmol/L Potassium (3.5-5.1) mmol/L Chloride (98-107) mmol/L Carbon Dioxide (21.0-32.0) mmol/L BUN (7.0-18.0) mg/dL Creatinine (0.8-1.3) mg/dL Est Cr Clr Drug Dosing mL/min Estimated GFR (MDRD) ml/min Glucose (74-106) mg/dL Calcium (8.5-10.1) mg/dL Total Bilirubin (0.2-1.0) mg/dL AST (15-37) IU/L ALT (14-63) IU/L Alkaline Phosphatase (46-116) U/L Creatine Kinase (26-308) U/L Troponin I < 0.050 (0.000-0.056) ng/mL C-Reactive Protein (0.00-0.90) mg/dL Total Protein (6.4-8.2) g/dL Albumin (3.4-5.0) g/dL Globulin (2.6-4.0) g/dL Albumin/Globulin Ratio (0.9-1.6) Urine Color YELLOW Urine Appearance CLEAR Urine pH 5.5 (5.0-8.0) Ur Specific [place] >= 1.030 (1.001-1.035) Urine Protein TRACE H (NEGATIVE) mg/dL Urine Glucose (UA) NEGATIVE (NEGATIVE) mg/dL Urine Ketones 15 H (NEGATIVE) mg/dL Urine Occult Blood SMALL H (NEGATIVE) Urine Nitrite NEGATIVE (NEGATIVE) Urine Bilirubin NEGATIVE (NEGATIVE) Urine Urobilinogen 0.2 (<2.0) EU/dL Ur Leukocyte Esterase NEGATIVE (NEGATIVE) Urine RBC 0-2 (0-2/HPF) Urine WBC 0-1 (0-5/HPF) Ur Epithelial Cells RARE (NONE-FEW) Urine Bacteria FEW (NEGATIVE) Urine Mucus LIGHT (NONE-MOD) 04/12/18 04/12/18 Range/Units 05:15 05:15 WBC (4.0-11.0) K/uL RBC (4.50-5.90) M/uL Hgb (13.0-17.0) g/dL Hct (38.0-50.0) % MCV (80.0-98.0) fL MCH (27.0-32.0) pg MCHC (31.0-37.0) g/dL RDW Std Deviation (28.0-62.0) fl RDW Coeff of Jean (11.0-15.0) % Plt Count (150-400) K/uL MPV (7.40-12.00) fL Neut % (Auto) (48.0-80.0) % Lymph % (Auto) (16.0-40.0) % [place] % (Auto) (0.0-15.0) % Eos % (Auto) (0.0-7.0) % Baso % (Auto) (0.0-1.5) % Neut # (Auto) (1.4-5.7) K/uL Lymph # (Auto) (0.6-2.4) K/uL [place] # (Auto) (0.0-0.8) K/uL Eos # (Auto) (0.0-0.7) K/uL Baso # (Auto) (0.0-0.1) K/uL Add Manual Diff Neutrophils % (Manual) (48.0-80.0) % Band Neutrophils % % Lymphocytes % (Manual) (16.0-40.0) % Monocytes % (Manual) (0.0-15.0) % Nucleated RBC % /100WBC Absolute Seg Neuts (1.4-5.7) Band Neutrophils # Lymphocytes # (Manual) (0.6-2.4) Monocytes # (Manual) (0.0-0.8) Nucleated RBCs # K/uL Lactate (0.20-2.00) mmol/L Sodium 140 (136-148) mmol/L Potassium 3.5 (3.5-5.1) mmol/L Chloride 107 (98-107) mmol/L Carbon Dioxide 24.2 (21.0-32.0) mmol/L BUN 8 (7.0-18.0) mg/dL Creatinine 1.0 (0.8-1.3) mg/dL Est Cr Clr Drug Dosing 103.89 mL/min Estimated GFR (MDRD) > 60.0 ml/min Glucose 87 (74-106) mg/dL Calcium 7.8 L (8.5-10.1) mg/dL Total Bilirubin 0.5 (0.2-1.0) mg/dL AST 52 H (15-37) IU/L ALT 45 (14-63) IU/L Alkaline Phosphatase 65 (46-116) U/L Creatine Kinase 1077 H (26-308) U/L Troponin I (0.000-0.056) ng/mL C-Reactive Protein 1.90 H (0.00-0.90) mg/dL Total Protein 5.6 L (6.4-8.2) g/dL Albumin 2.9 L (3.4-5.0) g/dL Globulin 2.7 (2.6-4.0) g/dL Albumin/Globulin Ratio 1.1 (0.9-1.6) Urine Color Urine Appearance Urine pH (5.0-8.0) Ur Specific [place] (1.001-1.035) Urine Protein (NEGATIVE) mg/dL Urine Glucose (UA) (NEGATIVE) mg/dL Urine Ketones (NEGATIVE) mg/dL Urine Occult Blood (NEGATIVE) Urine Nitrite (NEGATIVE) Urine Bilirubin (NEGATIVE) Urine Urobilinogen (<2.0) EU/dL Ur Leukocyte Esterase (NEGATIVE) Urine RBC (0-2/HPF) Urine WBC (0-5/HPF) Ur Epithelial Cells (NONE-FEW) Urine Bacteria (NEGATIVE) Urine Mucus (NONE-MOD) [place] Results Last 24 Hours: Microbiology 04/11/18 17:12 Campylobacter Antigen Assay - Final Stool / Feces Positive Campylobacter Ag Shiga Toxin I - Final NEGATIVE FOR SHIGA TOXIN 1 Shiga Toxin II - Final NEGATIVE FOR SHIGA TOXIN 2 04/11/18 14:40 Influenza Type A Antigen Screen - Final Nasopharyngeal Swab NEGATIVE INFLUENZA A VIRUS AG Influenza Type B Antigen Screen - Final NEGATIVE INFLUENZA B VIRUS AG 04/11/18 14:40 Group A Streptococcus Rapid Screen - Final Throat NEGATIVE STREP A SCREEN Med Orders - Current: Current Medications Acetaminophen (Tylenol) 650 mg PO Q4H PRN PRN Reason: Pain (Mild 1-3)/fever Albuterol/Ipratropium (Duoneb 3.0-0.5 Mg/3 Ml) 3 ml NEB Q4HRRT PRN PRN Reason: Shortness Of Breath/wheezing Docusate Sodium (Colace) 100 mg PO BID PRN PRN Reason: Constipation Enoxaparin Sodium (Lovenox) 40 mg SUBCUT Q24H [facility] Sodium Chloride (Normal Saline) 1,000 mls @ 125 mls/hr IV ASDIRECTED [facility] Last Admin: 04/12/18 03:11 Dose: 125 mls/hr Sodium Chloride (Normal Saline) 1,000 mls @ 999 mls/hr IV .Bolus ONE Stop: 04/12/18 11:52 Nicotine (Habitrol) 14 mg TRDERM DAILY [facility] Last Admin: 04/12/18 08:58 Dose: 14 mg Ondansetron HCl (Zofran Odt) 4 mg PO Q4H PRN PRN Reason: nausea, able to take PO Last Admin: 04/11/18 20:24 Dose: 4 mg Oseltamivir Phosphate (Tamiflu) 75 mg PO BID [facility] Last Admin: 04/12/18 10:19 Dose: 75 mg Oxycodone HCl (Oxycodone) 5 mg PO Q4H PRN PRN Reason: Pain (moderate 4-6) Sodium Chloride (Saline Flush) 10 ml FLUSH ASDIRECTED PRN PRN Reason: Keep Vein Open Sodium Chloride (Saline Flush) 2.5 ml FLUSH ASDIRECTED PRN PRN Reason: Keep Vein Open Temazepam (Restoril) 15 mg PO BEDTIME PRN PRN Reason: Sleep Last Admin: 04/11/18 23:36 Dose: 15 mg Discontinued Medications Albuterol/Ipratropium (Duoneb 3.0-0.5 Mg/3 Ml) 3 ml NEB ONETIME ONE Stop: 04/11/18 14:30 Last Admin: 04/11/18 14:40 Dose: 3 ml Enoxaparin Sodium (Lovenox) 30 mg SUBCUT Q24H [facility] Last Admin: 04/11/18 20:24 Dose: Not Given Sodium Chloride (Normal Saline) 1,000 mls @ 999 mls/hr IV STAT ONE Stop: 04/11/18 15:19 Last Admin: 04/11/18 14:40 Dose: 999 mls/hr Sodium Chloride (Normal Saline) 1,000 mls @ 999 mls/hr IV STAT ONE Stop: 04/11/18 16:41 Last Admin: 04/11/18 15:45 Dose: 999 mls/hr Levofloxacin/Dextrose 750 mg/ (Premix) 150 mls @ 100 mls/hr IV ONETIME ONE Stop: 04/11/18 19:03 Last Admin: 04/11/18 17:40 Dose: 100 mls/hr Sodium Chloride (Normal Saline) 1,000 mls @ 150 mls/hr IV ASDIRECTED [facility] Last Admin: 04/11/18 17:41 Dose: 150 mls/hr Influenza Virus Vaccine (Fluzone Quad 1361-0078 Syringe) 60 mcg IM .ONCE ONE Stop: 04/11/18 18:31 Iopamidol (Isovue-370 (76%)) 50 ml IV ONETIME ONE Stop: 04/11/18 16:52 Last Admin: 04/11/18 16:51 Dose: 50 ml Ketorolac Tromethamine (Toradol) 30 mg IVPUSH ONETIME ONE Stop: 04/11/18 14:20 Last Admin: 04/11/18 14:48 Dose: 30 mg Ondansetron HCl (Zofran) 4 mg IVPUSH ONETIME ONE Stop: 04/11/18 14:30 Last Admin: 04/11/18 14:48 Dose: 4 mg - Exam Quality Assessment: Supplemental Oxygen General: Alert, Oriented, Cooperative, No Acute Distress HEENT: Pupils Equal Neck: Supple Lungs: Normal Respiratory Effort, Decreased Breath Sounds (bibasilar) Cardiovascular: Regular Rate, Regular Rhythm GI/Abdominal Exam: Normal Bowel Sounds, Soft, Non-Tender, No Organomegaly Extremities: Normal Inspection, Normal Range of Motion, Non-Tender, No Pedal Edema Neurological: No New Focal Deficit Psy/Mental Status: Alert, Normal Affect, Normal Mood - Problem List & Annotations (1) Community acquired bacterial pneumonia SNOMED Code(s): 564715309, 762158793 Code(s): J15.9 - UNSPECIFIED BACTERIAL PNEUMONIA Status: Acute Current Visit: Yes (2) Influenza SNOMED Code(s): 2041865 Code(s): J11.1 - FLU DUE TO UNIDENTIFIED INFLUENZA VIRUS W OTH RESP MANIFEST Status: Acute Current Visit: Yes (3) Rhabdomyolysis SNOMED Code(s): 358407182 Code(s): M62.82 - RHABDOMYOLYSIS Status: Acute Current Visit: Yes (4) Campylobacter diarrhea SNOMED Code(s): 45809117 Code(s): A04.5 - CAMPYLOBACTER ENTERITIS Status: Acute Priority: High Current Visit: Yes (5) Dehydration SNOMED Code(s): 45615171 Code(s): E86.0 - DEHYDRATION Status: Acute Priority: High Current Visit : Yes - Problem List Review Problem List Initiated/Reviewed/Updated: Yes - My Orders Last 24 Hours: My Active Orders 04/12/18 09:11 Precautions [COMM] Routine 04/12/18 09:15 Oseltamivir [Tamiflu] 75 mg PO BID 04/12/18 10:52 Sodium Chloride 0.9% [Normal Saline] 1,000 ml IV .Bolus - Plan Plan:: This 47 year old male admitted with CAP and dehydration 1. CAP: Continue Levaquin for now. Leukopenia noted this morning. BC pending. Sputum culture pending as well. IS encouraged as well as ambulation as possible. Duonebs PRN for wheezing. 2. Influenza: Even though swab negative, symptoms very compelling for influenza. Will place on droplet precautions and start Tamiflu 75 mg BID. Patient aware. 3. Rhabdomyolysis: Severe muscle fatigue and generalized weakness. CPK 1077. Given 3 L in ED last night. Will give another 1 L NS now and continue NS at 150. Will monitor. 4. Campylobacter: Diarrhea improving. Continue Levaquin. Monitor. VTE prophylaxis: SCDS, no lovenox, platelets 105 this morning. Dispo: 1-2 days pending improvement.
[2018-04-12] MEDS: Levofloxacin/Dextrose 5%-Water 750 MG in Premix Bag 1 BAG IV SCH (13:33)
[2018-04-12] MEDS: Acetaminophen 325 MG Tab PO PRN (15:13)
[2018-04-12] MEDS ORDERED: Enoxaparin 40 MG/0.4 ML Syringe SUBCUT SCH (18:00)
[2018-04-13] MEDS: oxyCODONE 5 MG Tab PO PRN ×2 (04:01→09:43)
[2018-04-13 06:11] LABS: CHLORIDE,CL 107 mmol/L (98-107); SODIUM,NA 141 mmol/L (136-148)
[2018-04-13] MEDS: Sodium Chloride 0.9% 1,000 ML IV SCH ×2 (07:37→17:11)
[2018-04-13] MEDS: Acetaminophen 325 MG Tab PO PRN (08:35)
[2018-04-13] MEDS: Oseltamivir 75 MG Cap PO SCH ×2 (08:42→21:26)
[2018-04-13] MEDS: Nicotine 14 MG/24 Hr Patch TRDERM SCH (08:42)
[2018-04-13] MEDS ORDERED: Ibuprofen 400 MG Tab PO PRN (09:17)
--- NOTE | 2018-04-13 09:19 | PCM.PN ---
- General Info Date of Service: 04/13/18 Admission Dx/Problem (Free Text): Admission Diagnosis/Problem Admission Diagnosis/Problem Pneumonia Subjective Update: Reports feeling better today. Ambulating well in room overnight. Feeling stronger. No chest pain. Reports SOB improving, no having more productive cough getting thick secretions out. No further diarrhea. No abdominal pain. Functional Status: Reports: Tolerating Diet, Ambulating, Urinating - Review of Systems General: Reports: Fever, Weakness, Malaise. Denies: Appetite (poor appetite) Pulmonary: Reports: No Symptoms. Denies: Shortness of Breath, Pleuritic Chest Pain Cardiovascular: Reports: No Symptoms. Denies: Chest Pain, Palpitations Gastrointestinal: Reports: No Symptoms. Denies: Abdominal Pain, Nausea, Vomiting Genitourinary: Reports: No Symptoms. Denies: Dysuria, Frequency, Burning Musculoskeletal: Reports: No Symptoms Skin: Reports: No Symptoms Neurological: Reports: No Symptoms Psychiatric: Reports: No Symptoms - Patient Data Vitals - Most Recent: Last Vital Signs Temp 97.6 F 04/13/18 07:44 Pulse 77 04/13/18 07:44 Resp 16 04/13/18 07:44 BP 123/86 04/13/18 07:44 Pulse Ox 90 L 04/13/18 07:44 Weight - Most Recent: 97.114 kg I&O - Last 24 Hours: Intake & Output 04/12/18 04/13/18 04/13/18 22:59 06:59 14:59 Intake Total 2665 2711 Output Total 2725 2300 Balance -60 411 Lab Results Last 24 Hours: Laboratory Results - last 24 hr 04/12/18 04/13/18 04/13/18 Range/Units 05:15 05:20 05:20 WBC 2.96 L (4.0-11.0) K/uL RBC 4.21 L (4.50-5.90) M/uL Hgb 13.0 (13.0-17.0) g/dL Hct 39.0 (38.0-50.0) % MCV 92.6 (80.0-98.0) fL MCH 30.9 (27.0-32.0) pg MCHC 33.3 (31.0-37.0) g/dL RDW Std Deviation 45.6 (28.0-62.0) fl RDW Coeff of Jean 13 (11.0-15.0) % Plt Count 111 L (150-400) K/uL MPV 10.20 (7.40-12.00) fL Add Manual Diff YES Neutrophils % (Manual) 44 L (48.0-80.0) % Band Neutrophils % 5 % Lymphocytes % (Manual) 40 (16.0-40.0) % Monocytes % (Manual) 10 (0.0-15.0) % Eosinophils % (Manual) 1 (0.0-7.0) % Nucleated RBC % 0.0 /100WBC Absolute Seg Neuts 1.3 L (1.4-5.7) Band Neutrophils # 0.1 Lymphocytes # (Manual) 1.2 (0.6-2.4) Monocytes # (Manual) 0.3 (0.0-0.8) Eosinophils # (Manual) 0.0 (0.0-0.7) Nucleated RBCs # 0 K/uL Sodium 141 (136-148) mmol/L Potassium 3.8 (3.5-5.1) mmol/L Chloride 107 (98-107) mmol/L Carbon Dioxide 25.7 (21.0-32.0) mmol/L BUN 9 (7.0-18.0) mg/dL Creatinine 0.9 (0.8-1.3) mg/dL Est Cr Clr Drug Dosing 115.44 mL/min Estimated GFR (MDRD) > 60.0 ml/min Glucose 94 (74-106) mg/dL Calcium 8.1 L (8.5-10.1) mg/dL Creatine Kinase 1077 H 763 H (26-308) U/L [place] Results Last 24 Hours: Microbiology 04/11/18 14:40 Quick Strep Confirmation Culture - Final Throat NO GROUP A STREP ISOLATED Group A Streptococcus Rapid Screen - Final NEGATIVE STREP A SCREEN 04/11/18 17:12 Stool Culture - Final Stool / Feces Campylobacter Antigen Assay - Final Positive Campylobacter Ag Shiga Toxin I - Final NEGATIVE FOR SHIGA TOXIN 1 Shiga Toxin II - Final NEGATIVE FOR SHIGA TOXIN 2 04/12/18 16:45 Gram Stain - Preliminary Sputum - Expectorated Med Orders - Current: Current Medications Acetaminophen (Tylenol) 650 mg PO Q4H PRN PRN Reason: Pain (Mild 1-3)/fever Last Admin: 04/13/18 08:35 Dose: 650 mg Albuterol/Ipratropium (Duoneb 3.0-0.5 Mg/3 Ml) 3 ml NEB Q4HRRT PRN PRN Reason: Shortness Of Breath/wheezing Docusate Sodium (Colace) 100 mg PO BID PRN PRN Reason: Constipation Sodium Chloride (Normal Saline) 1,000 mls @ 125 mls/hr IV ASDIRECTED [facility] Last Admin: 04/13/18 07:37 Dose: 125 mls/hr Levofloxacin/Dextrose 750 mg/ (Premix) 150 mls @ 100 mls/hr IV Q24H [facility] Last Admin: 04/12/18 13:33 Dose: 100 mls/hr Ibuprofen (Motrin) 400 mg PO Q6H PRN PRN Reason: Pain Nicotine (Habitrol) 14 mg TRDERM DAILY [facility] Last Admin: 04/13/18 08:42 Dose: Not Given Ondansetron HCl (Zofran Odt) 4 mg PO Q4H PRN PRN Reason: nausea, able to take PO Last Admin: 04/11/18 20:24 Dose: 4 mg Oseltamivir Phosphate (Tamiflu) 75 mg PO BID [facility] Last Admin: 04/13/18 08:42 Dose: Not Given Oxycodone HCl (Oxycodone) 5 mg PO Q4H PRN PRN Reason: Pain (moderate 4-6) Last Admin: 04/13/18 04:01 Dose: 5 mg Sodium Chloride (Saline Flush) 10 ml FLUSH ASDIRECTED PRN PRN Reason: Keep Vein Open Sodium Chloride (Saline Flush) 2.5 ml FLUSH ASDIRECTED PRN PRN Reason: Keep Vein Open Temazepam (Restoril) 15 mg PO BEDTIME PRN PRN Reason: Sleep Last Admin: 04/11/18 23:36 Dose: 15 mg Discontinued Medications Albuterol/Ipratropium (Duoneb 3.0-0.5 Mg/3 Ml) 3 ml NEB ONETIME ONE Stop: 04/11/18 14:30 Last Admin: 04/11/18 14:40 Dose: 3 ml Enoxaparin Sodium (Lovenox) 30 mg SUBCUT Q24H [facility] Last Admin: 04/11/18 20:24 Dose: Not Given Enoxaparin Sodium (Lovenox) 40 mg SUBCUT Q24H [facility] Sodium Chloride (Normal Saline) 1,000 mls @ 999 mls/hr IV STAT ONE Stop: 04/11/18 15:19 Last Admin: 04/11/18 14:40 Dose: 999 mls/hr Sodium Chloride (Normal Saline) 1,000 mls @ 999 mls/hr IV STAT ONE Stop: 04/11/18 16:41 Last Admin: 04/11/18 15:45 Dose: 999 mls/hr Levofloxacin/Dextrose 750 mg/ (Premix) 150 mls @ 100 mls/hr IV ONETIME ONE Stop: 04/11/18 19:03 Last Admin: 04/11/18 17:40 Dose: 100 mls/hr Sodium Chloride (Normal Saline) 1,000 mls @ 150 mls/hr IV ASDIRECTED [facility] Last Admin: 04/11/18 17:41 Dose: 150 mls/hr Sodium Chloride (Normal Saline) 1,000 mls @ 999 mls/hr IV .Bolus ONE Stop: 04/12/18 11:52 Last Admin: 04/12/18 11:33 Dose: 999 mls/hr Influenza Virus Vaccine (Fluzone Quad 3203-0135 Syringe) 60 mcg IM .ONCE ONE Stop: 04/11/18 18:31 Iopamidol (Isovue-370 (76%)) 50 ml IV ONETIME ONE Stop: 04/11/18 16:52 Last Admin: 04/11/18 16:51 Dose: 50 ml Ketorolac Tromethamine (Toradol) 30 mg IVPUSH ONETIME ONE Stop: 04/11/18 14:20 Last Admin: 04/11/18 14:48 Dose: 30 mg Ondansetron HCl (Zofran) 4 mg IVPUSH ONETIME ONE Stop: 04/11/18 14:30 Last Admin: 04/11/18 14:48 Dose: 4 mg - Exam General: Alert, Oriented, Cooperative Neck: Supple Lungs: Normal Respiratory Effort, Crackles (bibasilar) Cardiovascular: Regular Rate, Regular Rhythm, No Murmurs GI/Abdominal Exam: Normal Bowel Sounds, Soft, Non-Tender Extremities: Normal Inspection, Normal Range of Motion, Non-Tender, No Pedal Edema Neurological: No New Focal Deficit Psy/Mental Status: Alert, Normal Affect, Normal Mood - Problem List & Annotations (1) Community acquired bacterial pneumonia SNOMED Code(s): 009301042, 377791352 Code(s): J15.9 - UNSPECIFIED BACTERIAL PNEUMONIA Status: Acute Current Visit: Yes (2) Influenza SNOMED Code(s): 0188696 Code(s): J11.1 - FLU DUE TO UNIDENTIFIED INFLUENZA VIRUS W OTH RESP MANIFEST Status: Acute Current Visit: Yes (3) Rhabdomyolysis SNOMED Code(s): 504460343 Code(s): M62.82 - RHABDOMYOLYSIS Status: Acute Current Visit: Yes (4) Campylobacter diarrhea SNOMED Code(s): 89943320 Code(s): A04.5 - CAMPYLOBACTER ENTERITIS Status: Acute Priority: High Current Visit: Yes (5) Dehydration SNOMED Code(s): 11400502 Code(s): E86.0 - DEHYDRATION Status: Acute Priority: High Current Visit : Yes - Problem List Review Problem List Initiated/Reviewed/Updated: Yes - My Orders Last 24 Hours: My Active Orders 04/12/18 09:11 Precautions [COMM] Routine 04/12/18 09:15 Oseltamivir [Tamiflu] 75 mg PO BID 04/12/18 12:07 Antiembolic Devices [RC] PER UNIT ROUTINE SCD [Sequential Compression Device] [OM.PC] Routine 04/12/18 12:45 Levofloxacin/Dextrose 5%-Water [Levaquin in D5W 750 MG/150 ML] 750 mg Premix Bag 1 bag IV Q24H 04/12/18 16:45 CULTURE SPUTUM + SMEAR [RM] Routine 04/13/18 09:17 Ibuprofen [Motrin] 400 mg PO Q6H PRN 04/14/18 05:11 BASIC METABOLIC PANEL,BMP [CHEM] AM CBC WITH AUTO DIFF [HEME] AM CREATINE KINASE,CK [CHEM] AM - Plan Plan:: This 47 year old male admitted with CAP and dehydration 1. CAP: Continue Levaquin. Leukopenia noted. Sputum culture pending as well. IS encouraged as well as ambulation as possible. Duonebs PRN for wheezing. 2. Influenza: Even though swab negative, symptoms very compelling for influenza. Will place on droplet precautions and start Tamiflu 75 mg BID. Patient aware. 3. Rhabdomyolysis: Severe muscle fatigue and generalized weakness improving. CPK 763. Continue NS at 125. Will monitor. 4. Campylobacter: No further diarrhea Continue Levaquin. Monitor. VTE prophylaxis: SCDS Dispo: 1-2 days pending improvement.
[2018-04-13] MEDS: Levofloxacin/Dextrose 5%-Water 750 MG in Premix Bag 1 BAG IV SCH (12:57)
[2018-04-14] MEDS: Sodium Chloride 0.9% 1,000 ML IV SCH ×2 (00:46→08:43)
[2018-04-14 06:13] LABS: CHLORIDE,CL 109 mmol/L (98-107); SODIUM,NA 142 mmol/L (136-148)
[2018-04-14 07:20] VITALS: BP 115/75
[2018-04-14] MEDS: Nicotine 14 MG/24 Hr Patch TRDERM SCH (08:21)
[2018-04-14] MEDS: Oseltamivir 75 MG Cap PO SCH (08:22)
--- NOTE | 2018-04-14 09:52 | PCM.DCSUM1 ---
Discharge Summary - Hospital Course Brief History: The patient is 47-year-old gentleman who presented to the emergency department after being referred to the [facility]. Patient reports that for the past week he has not been feeling well. The patient says that he got back from a trip and had been exposed to sick people. The patient had traveled from [place]. 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 The patient also has had fever and chills while at home. He said at one point he completely soaked through his clothes while in his truck. The patient has been complaining of severe shortness of breath as well. He reports that he has been unable to walk more than 10-15 feet without having to stop to rest. He also says that he feels dehydrated. The patient had a CT scan which reported mild patchy infiltrate in the posterior lateral right lung base consistent with an early pneumonia. Was no signs of PE. The patient has no other complaints at the present time. Diagnosis: Stroke: No - Discharge Data Discharge Date: 04/14/18 Discharge Disposition: Home, Self-Care 01 Condition: Stable - Discharge Diagnosis/Problem(s) (1) Community acquired bacterial pneumonia SNOMED Code(s): 360454663, 655747974 ICD Code: J15.9 - UNSPECIFIED BACTERIAL PNEUMONIA Status: Acute Current Visit: Yes (2) Influenza SNOMED Code(s): 7257906 ICD Code: J11.1 - FLU DUE TO UNIDENTIFIED INFLUENZA VIRUS W OTH RESP MANIFEST Status: Acute Current Visit: Yes (3) Rhabdomyolysis SNOMED Code(s): 742051683 ICD Code: M62.82 - RHABDOMYOLYSIS Status: Acute Current Visit: Yes Qualifiers: Rhabdomyolysis type: non-traumatic Qualified Code(s): M62.82 - Rhabdomyolysis (4) Campylobacter diarrhea SNOMED Code(s): 06301276 ICD Code: A04.5 - CAMPYLOBACTER ENTERITIS Status: Acute Priority: High Current Visit: Yes (5) Dehydration SNOMED Code(s): 87896615 ICD Code: E86.0 - DEHYDRATION Status: Acute Priority: High Current Visit: Yes - Patient Instructions Diet: Regular Diet as Tolerated Activity: As Tolerated, Rest and Relax Today Showering/Bathing: May Shower Notify Provider of: Fever, Increased Pain, Swelling and Redness, Drainage, Nausea and/or Vomiting - Discharge Plan *PRESCRIPTION DRUG MONITORING PROGRAM REVIEWED*: Not Applicable *COPY OF PRESCRIPTION DRUG MONITORING REPORT IN PATIENT JACKELIN: Not Applicable Prescriptions/Med Rec: Levofloxacin [Levaquin] 750 mg PO DAILY #5 tablet Home Medications: Home Meds Cetirizine HCl [Allergy Relief] 1 tab PO DAILY 04/16/14 [History] Acetaminophen [Tylenol] 650 mg PO Q4H PRN tablet 04/14/18 [Rx] Fluticasone Propionate [Flonase] 2 spray NASBOTH DAILY #1 bottle 04/14/18 [Rx] Levofloxacin [Levaquin] 750 mg PO DAILY #5 tablet 04/14/18 [Rx] Oxygen Therapy Mode: Room Air Patient Handouts: Influenza, Adult, [id number], Levofloxacin tablets, Community-Acquired Pneumonia, Adult, [id number] [facility]] Srinivas Munoz MD [Ordering Only Provider] - 04/26/18 9:00 am - Discharge Summary/Plan Comment DC Time >30 min.: No Discharge Summary/Plan Comment: Discharge Diagnoses: CAP Influenza Rhabdomyolysis Dehydration Campylobacter diarrhea-resolved Dennis was admitted secondary to SOB and malaise. He was found to have pneumonia in RL base as well as possible LL infiltrate as well. Influenza swab negative, but due to compelling symptoms, we opted to treat for influenza. He was treated with Levaquin 750 mg daily for CAP and 75 mg BID Tamiflu. Due to severe muscle fatigue, CPK was checked and noted to be elevated at 1077. In the ED the night of admission, he did receive 3 L of fluids. He was continued on IVFs for resuscitation efforts with elevated CPK. CPK today is 402. He is starting to feel improved and is ambulating well within room and in the hallway. Continues to have sinus pressure and overall not feeling well, but is improved since arriving. Sputum culture reveals normal respiratory clifton. He reports the Tamiflu gave him a headache and has declined taking this. He will be continued on 5 more days of Levaquin and encouraged to rest and relax for a few days prior to going back to normal activity. He was encouraged to stay hydrated with water and gatorade if wanted. at bedside during discharge discussion. They both agree with plan and feel safe going home. He is to return to ED or clinic if he has concerns or worsens upon returning home. All questions and concerns addressed. - General Info Date of Service: 04/14/18 Admission Dx/Problem (Free Text: Admission Diagnosis/Problem Admission Diagnosis/Problem Pneumonia Subjective Update: reports feeling better today. still tired, but improved. Coughing, productive. SOB is improved, able to ambulate in hallway easily. No chest pain or palpitations. Functional Status: Reports: Pain Controlled, Tolerating Diet, Ambulating, Urinating - Review of Systems General: Reports: Fatigue, Malaise. Denies: Fever, Weakness HEENT: Reports: Sinus Congestion. Denies: Ear Pain, Headaches, Visual Changes Pulmonary: Reports: Cough, Sputum (light yellow). Denies: Shortness of Breath, Wheezing Cardiovascular: Reports: No Symptoms. Denies: Chest Pain, Palpitations, Edema Gastrointestinal: Reports: No Symptoms. Denies: Abdominal Pain, Nausea, Vomiting Genitourinary: Reports: No Symptoms. Denies: Dysuria, Frequency, Burning Musculoskeletal: Reports: No Symptoms Skin: Reports: No Symptoms Neurological: Reports: No Symptoms Psychiatric: Reports: No Symptoms - Patient Data Vitals - Most Recent: Last Vital Signs Temp 98.8 F 04/14/18 07:19 Pulse 74 04/14/18 07:19 Resp 18 04/14/18 07:19 BP 115/75 04/14/18 07:19 Pulse Ox 92 L 04/14/18 07:19 Weight - Most Recent: 97.114 kg I&O - Last 24 hours: Intake & Output 04/13/18 04/14/18 04/14/18 22:59 06:59 14:59 Intake Total 2178 1600 Output Total 1150 1000 Balance 1028 600 Lab Results - Last 24 hrs: Laboratory Results - last 24 hr 04/14/18 04/14/18 Range/Units 05:30 05:30 WBC 3.41 L (4.0-11.0) K/uL RBC 4.25 L (4.50-5.90) M/uL Hgb 13.3 (13.0-17.0) g/dL Hct 39.3 (38.0-50.0) % MCV 92.5 (80.0-98.0) fL MCH 31.3 (27.0-32.0) pg MCHC 33.8 (31.0-37.0) g/dL RDW Std Deviation 45.0 (28.0-62.0) fl RDW Coeff of Jean 13 (11.0-15.0) % Plt Count 109 L (150-400) K/uL MPV 10.10 (7.40-12.00) fL Add Manual Diff YES Neutrophils % (Manual) 45 L (48.0-80.0) % Band Neutrophils % 4 % Lymphocytes % (Manual) 41 H (16.0-40.0) % Monocytes % (Manual) 10 (0.0-15.0) % Nucleated RBC % 0.0 /100WBC Absolute Seg Neuts 1.5 (1.4-5.7) Band Neutrophils # 0.1 Lymphocytes # (Manual) 1.4 (0.6-2.4) Monocytes # (Manual) 0.3 (0.0-0.8) Nucleated RBCs # 0 K/uL Sodium 142 (136-148) mmol/L Potassium 4.1 (3.5-5.1) mmol/L Chloride 109 H (98-107) mmol/L Carbon Dioxide 25.3 (21.0-32.0) mmol/L BUN 8 (7.0-18.0) mg/dL Creatinine 0.9 (0.8-1.3) mg/dL Est Cr Clr Drug Dosing 115.44 mL/min Estimated GFR (MDRD) > 60.0 ml/min Glucose 93 (74-106) mg/dL Calcium 8.1 L (8.5-10.1) mg/dL Creatine Kinase 402 H (26-308) U/L VIKRAM Results - Last 24 hrs: Microbiology 04/11/18 14:40 Quick Strep Confirmation Culture - Final Throat NO GROUP A STREP ISOLATED Group A Streptococcus Rapid Screen - Final NEGATIVE STREP A SCREEN 04/11/18 17:12 Stool Culture - Final Stool / Feces Campylobacter Antigen Assay - Final Positive Campylobacter Ag Shiga Toxin I - Final NEGATIVE FOR SHIGA TOXIN 1 Shiga Toxin II - Final NEGATIVE FOR SHIGA TOXIN 2 Med Orders - Current: Current Medications Acetaminophen (Tylenol) 650 mg PO Q4H PRN PRN Reason: Pain (Mild 1-3)/fever Last Admin: 04/13/18 08:35 Dose: 650 mg Albuterol/Ipratropium (Duoneb 3.0-0.5 Mg/3 Ml) 3 ml NEB Q4HRRT PRN PRN Reason: Shortness Of Breath/wheezing Docusate Sodium (Colace) 100 mg PO BID PRN PRN Reason: Constipation Fluticasone Propionate (Flonase) 0 gm NASBOTH DAILY [facility], [facility] Sodium Chloride (Normal Saline) 1,000 mls @ 125 mls/hr IV ASDIRECTED [facility], 1928–1983 Last Admin: 04/14/18 08:43 Dose: 125 mls/hr Levofloxacin/Dextrose 750 mg/ (Premix) 150 mls @ 100 mls/hr IV Q24H [facility] Last Admin: 04/13/18 12:57 Dose: 100 mls/hr Ibuprofen (Motrin) 400 mg PO Q6H PRN PRN Reason: Pain Last Admin: 04/13/18 15:13 Dose: 400 mg Nicotine (Habitrol) 14 mg TRDERM DAILY [facility] Last Admin: 04/14/18 08:21 Dose: Not Given Ondansetron HCl (Zofran Odt) 4 mg PO Q4H PRN PRN Reason: nausea, able to take PO Last Admin: 04/11/18 20:24 Dose: 4 mg Oseltamivir Phosphate (Tamiflu) 75 mg PO BID [facility], [facility] Last Admin: 04/14/18 08:22 Dose: Not Given Oxycodone HCl (Oxycodone) 5 mg PO Q4H PRN PRN Reason: Pain (moderate 4-6) Last Admin: 04/13/18 09:43 Dose: 5 mg Sodium Chloride (Saline Flush) 10 ml FLUSH ASDIRECTED PRN PRN Reason: Keep Vein Open Sodium Chloride (Saline Flush) 2.5 ml FLUSH ASDIRECTED PRN PRN Reason: Keep Vein Open Temazepam (Restoril) 15 mg PO BEDTIME PRN PRN Reason: Sleep Last Admin: 04/11/18 23:36 Dose: 15 mg Discontinued Medications Albuterol/Ipratropium (Duoneb 3.0-0.5 Mg/3 Ml) 3 ml NEB ONETIME ONE Stop: 04/11/18 14:30 Last Admin: 04/11/18 14:40 Dose: 3 ml Enoxaparin Sodium (Lovenox) 30 mg SUBCUT Q24H [facility] Last Admin: 04/11/18 20:24 Dose: Not Given Enoxaparin Sodium (Lovenox) 40 mg SUBCUT Q24H [facility] Sodium Chloride (Normal Saline) 1,000 mls @ 999 mls/hr IV STAT ONE Stop: 04/11/18 15:19 Last Admin: 04/11/18 14:40 Dose: 999 mls/hr Sodium Chloride (Normal Saline) 1,000 mls @ 999 mls/hr IV STAT ONE Stop: 04/11/18 16:41 Last Admin: 04/11/18 15:45 Dose: 999 mls/hr Levofloxacin/Dextrose 750 mg/ (Premix) 150 mls @ 100 mls/hr IV ONETIME ONE Stop: 04/11/18 19:03 Last Admin: 04/11/18 17:40 Dose: 100 mls/hr Sodium Chloride (Normal Saline) 1,000 mls @ 150 mls/hr IV ASDIRECTED [facility], [facility] Last Admin: 04/11/18 17:41 Dose: 150 mls/hr Sodium Chloride (Normal Saline) 1,000 mls @ 999 mls/hr IV .Bolus ONE Stop: 04/12/18 11:52 Last Admin: 04/12/18 11:33 Dose: 999 mls/hr Influenza Virus Vaccine (Fluzone Quad 7034-1016 Syringe) 60 mcg IM .ONCE ONE Stop: 04/11/18 18:31 Iopamidol (Isovue-370 (76%)) 50 ml IV ONETIME ONE Stop: 04/11/18 16:52 Last Admin: 04/11/18 16:51 Dose: 50 ml Ketorolac Tromethamine (Toradol) 30 mg IVPUSH ONETIME ONE Stop: 04/11/18 14:20 Last Admin: 04/11/18 14:48 Dose: 30 mg Ondansetron HCl (Zofran) 4 mg IVPUSH ONETIME ONE Stop: 04/11/18 14:30 Last Admin: 04/11/18 14:48 Dose: 4 mg - Exam Quality Assessment: Reports: DVT Prophylaxis. Denies: Supplemental Oxygen General: Reports: Alert, Oriented, Cooperative, No Acute Distress Neck: Reports: Supple Lungs: Reports: Clear to Auscultation, Normal Respiratory Effort Cardiovascular: Reports: Regular Rate, Regular Rhythm GI/Abdominal Exam: Normal Bowel Sounds, Soft, Non-Tender Extremities: Normal Inspection, Normal Range of Motion, Non-Tender, No Pedal Edema Neurological: Reports: No New Focal Deficit Psy/Mental Status: Reports: Alert, Normal Affect, Normal Mood
[2018-04-14] MEDS ORDERED: Fluticasone Propionate Nasal Spray 16 GM Bottle NASBOTH SCH (10:00)
== END 2018-04-14 11:09 | disposition home or self-care (01) ==
LOC: MW.ED 14:10 → MW.MS 17:48
PROVIDERS: ADMIT Internal Medicine; ATTEND Internal Medicine
DX: J11.08 Influenza due to unidentified influenza virus with specified pneumonia (principal); J15.9 Unspecified bacterial pneumonia; M62.82 Rhabdomyolysis; A04.5 Campylobacter enteritis; E86.0 Dehydration; F17.290 Nicotine dependence, other tobacco product, uncomplicated; Z23 Encounter for immunization; Z79.51 Long term (current) use of inhaled steroids; Z79.899 Other long term (current) drug therapy
CPT/HCPCS: 36415; 71046; 71275; 80048; 80053; 81001; 82550; 83605; 84484; 85025; 86140; 87046; 87070; 87081; 87205; 87804; 87880; 87899; 90686; 93005; 94640; 96361; 96365; 96366; 96375; 99285; A9270; G0008; G0378; J1885; J1956; J2405; J7040; Q9967; 99284; J7620-GY

== ENCOUNTER 2020-07-18 10:28 | Emergency (ER) | payer OTHER, BC ==
--- NOTE | 2020-07-18 11:18 | PCM.EKG ---
#1 Interpretation EKG Date: 07/18/20 Time: 11:00 Rhythm: NSR Rate (Beats/Min): 93 [place]: Normal P-Wave: Present QRS: Normal ST-T: Normal QT: Normal IN/PQ Interval: 135 EKG Interpretation Comments: Normal EKG
[2020-07-18] MEDS ORDERED: Sodium Chloride 0.9% 1,000 ML IV ONE (11:39)
[2020-07-18] MEDS ORDERED: Meclizine 25 MG Tab PO ONE (11:40)
[2020-07-18 12:05] LABS: BLOOD UREA NITROGEN,BUN 19 mg/dL (7.0-18.0); CARBON DIOXIDE,CO2 25.4 mmol/L (21.0-32.0); CHLORIDE,CL 103 mmol/L (98-107); GLUCOSE RANDOM 136 mg/dL (74-106); POTASSIUM,K 4.2 mmol/L (3.5-5.1); SODIUM,NA 140 mmol/L (136-148)
--- NOTE | 2020-07-18 12:22 | CR ---
For Patients: As a result of the Cures Act, medical imaging exams and procedure reports are released immediately into your electronic medical record. You may view this report before your referring provider. If you have questions, please contact your health care provider. Indication: Vertigo Comparison: Two-view chest April 11, 2018 Technique: Single AP view chest Findings: There is hyperinflation and chronic interstitial change. There is minimal basilar atelectasis versus scar without evidence of dense consolidation, effusion or pneumothorax. The cardiac silhouette is stable. The bony thorax is grossly intact. Impression: Hyperinflation and chronic interstitial changes with minimal basilar atelectasis versus scar. Dictated by Won Chavis MD @ 07/18/2020 12:22:[address] Won Chavis @ Jul 18 2020 12:22PM
--- NOTE | 2020-07-18 13:17 | CT ---
For Patients: As a result of the Century Cures Act, medical imaging exams and procedure reports are released immediately into your electronic medical record. You may view this report before your referring provider. If you have questions, please contact your health care provider. Indication : Vertigo Technique: Noncontrast head CT Comparison: No comparison Findings: Axial noncontrast images through the brain parenchyma demonstrates no acute intracranial hemorrhage or mass. No midline shift. No abnormal extra-axial air fluid collections are seen. Fluid in the left maxillary sinus mild mucosal thickening of the right maxillary sinus mucosal thickening of the sphenoid sinuses. Mastoid air cells skull and scalp otherwise appears unremarkable. Impression: 1. No acute intracranial hemorrhage or mass 2. Fluid in the left maxillary sinus could reflect sinusitis. There is mucosal thickening of the right maxillary sinus and sphenoid sinuses. Please note that all CT scans at this facility use dose modulation, iterative reconstruction, and/or weight-based dosing when appropriate to reduce radiation dose to as low as reasonably achievable. Dictated by Angie Sandoval MD @ 07/18/2020 1:14:[address] Angie Sandoval @ Jul 18 2020 1:14PM
--- NOTE | 2020-07-18 13:25 | CT ---
For Patients: As a result of the Century Cures Act, medical imaging exams and procedure reports are released immediately into your electronic medical record. You may view this report before your referring provider. If you have questions, please contact your health care provider. INDICATION: Vertigo, unable to walk without falling. TECHNIQUE: After standard noncontrast head CT, high resolution axial CT images acquired through the head and neck following rapid intravenous administration of iodinated contrast. Multiplanar MIPS of cranial and cervical vasculature performed. FINDINGS: Noncontrast head CT: There is no intracranial hemorrhage or fluid collection. The humphries-white matter differentiation is maintained. The ventricles are of normal morphology. The basal cisterns are clear. CTA head: There is normal filling of the intracranial vasculature; i.e. there is no large vessel occlusion or intracranial stenosis. There is no cerebral aneurysm or evidence for vascular malformation. CTA neck: There is marked tortuosity of the internal carotid arteries. There is minor carotid atherosclerotic disease. There is no significant carotid or vertebral artery stenosis or dissection. IMPRESSION: No acute intracranial abnormality at CT/CTA. Minor carotid atherosclerotic disease. No significant carotid or vertebral artery stenosis or dissection. Jonathan Carmona MD [employer] [facility] Please note that all CT scans at this facility use dose modulation, iterative reconstruction, and/or weight-based dosing when appropriate to reduce radiation dose to as low as reasonably achievable. Dictated by Jonathan Carmona MD @ 07/18/2020 1:24:[address] Jonathan Carmona @ Jul 18 2020 1:24PM
--- NOTE | 2020-07-18 14:24 | EDM.PDOC ---
ED HPI GENERAL MEDICAL PROBLEM - General Chief Complaint: Neurological Problem Stated Complaint: VERTIGO AND CLAMMINESS Time Seen by Provider: 07/18/20 10:31 Source of Information: Reports: Patient History Limitations: Reports: No Limitations - History of Present Illness INITIAL COMMENTS - FREE TEXT/NARRATIVE: HISTORY AND PHYSICAL: History of present illness: Patient is a 49-year-old male who presents emergency department secondary to a 1 day history of the sensation of the room spinning, nausea, and difficulty walking due to the spinning. Patient reports that this came on suddenly yesterday when he was getting into bed but then resided after a couple of minutes. Patient reports that the sensation of the room spinning comes and goes with changes in position such as going from sitting to standing or moving too quickly. Patient reports that during the spells he has difficulty walking and feels like he is going to fall over but has not fallen since this started and off balance. Patient reports that he has never had this sensation before. Patient reports that he went to the walk-in clinic to have this evaluated and they sent him to the emergency department for a higher level of care. Patient states that he has had some ear congestion over the past 1 month and has been using Afrin over the course of the last 1 month and has not been able to stop it due to rebound congestion. Patient has a history of alcohol abuse but his stop date was in 2015 according to patient has not drink since. Patient denies fever, chills, chest pain, shortness of breath, or cough. Denies headache, neck stiff ness, change in vision, syncope, or near syncope. Denies nausea, vomiting, abdominal pain, diarrhea, constipation, or dysuria. Has not noted any blood in urine or stool. Patient has been eating and drinking appropriately. Review of systems: As per history of present illness and below otherwise all systems reviewed and negative. Past medical history: As per history of present illness and as reviewed below otherwise noncontributory. Surgical history: As per history of present illness and as reviewed below otherwise noncontributory. Social history: See social history for further information Family history: As per history of present illness and as reviewed below otherwise noncontributory. Physical exam: General: Patient is alert, oriented, and in no acute distress. Patient laying comfortably on exam table. Patient's vitals are stable and reviewed by me. HEENT: Atraumatic, normocephalic, pupils equal and reactive bilaterally, negative for conjunctival pallor or scleral icterus, mucous membranes moist, TMs normal bilaterally, throat clear, neck supple, nontender, trachea midline. No drooling or trismus noted. No meningeal signs. No hot potato voice noted. Lungs: Clear to auscultation, breath sounds equal bilaterally, chest nontender. Heart: S1S2, regular rate and rhythm without overt murmur Abdomen: Soft, nondistended, nontender. Negative for masses or hepatosplenomegaly. Negative for costovertebral tenderness. Pelvis: Stable nontender. Genitourinary: Deferred. Rectal: Deferred. Skin: Intact, warm, dry. No lesions or rashes noted. Extremities: Atraumatic, negative for cords or calf pain. Neurovascular unremarkable. Neuro: Awake, alert, oriented. Cranial nerves II through XII unremarkable. Toby Hallpike maneuver does not indicate any nystagmus. Patient unable to sit up without holding onto side of bed rail. When standing unable to walk without holding onto objects / unsteady gait. Notes: Patient is a 49-year-old male that presents emergency department secondary to a 1 day history with a sensation of the room spinning, nausea, and difficulty walking. Upon arrival to the ED, the patient's vitals are stable and he is resting comfortably on the exam table when laying. When sitting up, patient holds onto the side railing to not fall over. With standing, he is unsteady on his feet and was not able to walk without holding onto railing or would fall. Although patient does express a history of inner ear issues, toby Hallpike indicates no nystagmus present and due to presentation and inability to ambulate, will obtain lab work and head and neck CTA, head CT. We will give the patient some meclizine in the emergency department and reevaluate to see if this relieves the symptoms. We will also initiate 1 L fluid bolus. See Dr. Preston's dictation for specific EKG findings, otherwise normal sinus rhythm with no signs of ischemia or STEMI. CBC and CMP show mild derangements which are unremarkable. Chest x-ray shows hyperinflation and chronic interstitial changes with minimal basilar atelectasis versus scar. Head CT shows no acute intracranial abnormality head CT/CTA. Minor carotid atherosclerotic disease. No significant carotid or vertebral artery stenosis or dissection. Neck CTA shows no acute intracranial abnormality at CT/CTA. Minor carotid atherosclerotic disease. No significant carotid or vertebral artery stenosis or dissection. Head CT shows no acute intracranial hemorrhage or mass. Fluid in the left maxillary sinus could reflect sinusitis. There is mucosal thickening of the right maxillary sinus and sphenoid sinuses. Upon reexamination patient, his symptoms have much improved and is able to sit up and ambulate without difficulty. Signs and symptoms that were prompt return to the ED thoroughly discussed with patient. Discussed with patient the importance of follow-up with primary care provider. Voices understanding and is agreeable to plan of care. Denies any further questions or concerns at this time. Diagnostics: EKG, Trop, CBC, CMP, EKG, chest x-ray, head and neck CTA, head CT Therapeutics: Normal saline, meclizine Prescription: Meclizine Impression: Dizziness Vertigo Plan: 1. Take medication as prescribed. Slowly work on decreasing the dose of Afrin with a goal to stop taking this medication as discussed. 2. Follow-up with your primary care provider as discussed. Return to the ED as needed and as discussed. Definitive disposition and diagnosis as appropriate pending reevaluation and review of above. - Related Data Allergies Allergy/AdvReac Type Severity Reaction Status Date / Time No Known Allergies Allergy Verified 07/18/20 10:58 Home Meds: Home Meds Meclizine [Antivert] 25 mg PO Q6H PRN #15 tab 07/18/20 [Rx] Pantoprazole Sodium [Protonix] 20 mg PO DAILY 07/18/20 [History] Venlafaxine HCl [Venlafaxine ER] 75 mg PO DAILY 07/18/20 [History] Past Medical History HEENT History: Reports: Allergic Rhinitis Cardiovascular History: Reports: None Respiratory History: Reports: None Gastrointestinal History: Reports: None Genitourinary History: Reports: None Musculoskeletal History: Reports: None Neurological History: Reports: Head Trauma Psychiatric History: Reports: Addiction, Other (See Below) 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 Endocrine/Metabolic History: Reports: None Hematologic History: Reports: None Immunologic History: Reports: None Oncologic (Cancer) History: Reports: None Dermatologic History: Reports: None - Infectious Disease History Infectious Disease History: Reports: Chicken Pox - Past Surgical History GI Surgical History: Reports: Hernia Repair/Other Social & Family History - Family History Family Medical History: No Pertinent Family History - Caffeine Use Caffeine Use: Reports: Coffee, Soda - Living Situation & Occupation Living situation: Reports: , with Spouse Occupation: Employed ED ROS GENERAL - Review of Systems Review Of Systems: Comprehensive ROS is negative, except as noted in HPI. ED EXAM, GENERAL - Physical Exam Exam: See Below (see dictation) Course - Vital Signs Last Recorded V/S: Last Vital Signs Temp 96.6 F L 07/18/20 11:06 Pulse 77 07/18/20 14:46 Resp 16 07/18/20 14:46 BP 151/96 H 07/18/20 14:46 Pulse Ox 95 07/18/20 14:46 - Orders/Labs/Meds Labs: Laboratory Tests 07/18/20 07/18/20 Range/Units 11:03 11:03 WBC 7.24 (4.0-11.0) K/uL RBC 4.86 (4.50-5.90) M/uL Hgb 15.6 (13.0-17.0) g/dL Hct 46.6 (38.0-50.0) % MCV 95.9 (80.0-98.0) fL MCH 32.1 H (27.0-32.0) pg MCHC 33.5 (31.0-37.0) g/dL RDW Std Deviation 46.4 (28.0-62.0) fl RDW Coeff of Jean 13 (11.0-15.0) % Plt Count 215 (150-400) K/uL MPV 11.10 (7.40-12.00) fL Neut % (Auto) 59.4 (48.0-80.0) % Lymph % (Auto) 28.0 (16.0-40.0) % Carlton % (Auto) 10.5 (0.0-15.0) % Eos % (Auto) 1.7 (0.0-7.0) % Baso % (Auto) 0.4 (0.0-1.5) % Neut # (Auto) 4.3 (1.4-5.7) K/uL Lymph # (Auto) 2.0 (0.6-2.4) K/uL Carlton # (Auto) 0.8 (0.0-0.8) K/uL Eos # (Auto) 0.1 (0.0-0.7) K/uL Baso # (Auto) 0.0 (0.0-0.1) K/uL Nucleated RBC % 0.0 /100WBC Nucleated RBCs # 0 K/uL Sodium 140 (136-148) mmol/L Potassium 4.2 (3.5-5.1) mmol/L Chloride 103 (98-107) mmol/L Carbon Dioxide 25.4 (21.0-32.0) mmol/L BUN 19 H (7.0-18.0) mg/dL Creatinine 1.0 (0.8-1.3) mg/dL Est Cr Clr Drug Dosing 101.61 mL/min Estimated GFR (MDRD) > 60.0 ml/min Glucose 136 H (74-106) mg/dL Calcium 9.1 (8.5-10.1) mg/dL Total Bilirubin 0.4 (0.2-1.0) mg/dL AST 22 (15-37) IU/L ALT 44 (14-63) IU/L Alkaline Phosphatase 138 H (46-116) U/L Troponin I < 0.050 (0.000-0.056) ng/mL Total Protein 7.9 (6.4-8.2) g/dL Albumin 4.2 (3.4-5.0) g/dL Globulin 3.7 (2.6-4.0) g/dL Albumin/Globulin Ratio 1.1 (0.9-1.6) Meds: Medications Discontinued Medications Generic Name Dose Route Start Last Admin Trade Name Mar PRN Reason Stop Dose Admin Sodium Chloride 1,000 mls @ 999 mls/hr 07/18/20 11:39 07/18/20 11:45 Normal Saline IV 07/18/20 12:39 999 mls/hr BOLUS ONE Administration Iopamidol 100 ml 07/18/20 15:40 07/18/20 15:41 Iopamidol 755 Mg/Ml 500 Ml Multipack Bottle IVPUSH 07/18/20 15:41 100 ml ONETIME STA Administration Meclizine HCl 25 mg 07/18/20 11:40 07/18/20 11:45 Meclizine 25 Mg Tab PO 07/18/20 11:41 25 mg ONETIME ONE Administration Departure - Departure Time of Disposition: 14:23 Disposition: Home, Self-Care 01 Clinical Impression: Dizziness, Vertigo - Discharge Information Prescriptions: Meclizine [Antivert] 25 mg PO Q6H PRN #15 tab PRN Reason: Dizziness Instructions: Vertigo, Dizziness Referrals: Anton Mitchell NP [Primary Care Provider] - Forms: ED Department Discharge Additional Instructions: The following information is given to patients seen in the emergency department who are being discharged to home. This information is to outline your options for follow-up care. We provide all patients seen in our emergency department with a follow-up referral. The need for follow-up, as well as the timing and circumstances, are variable depending upon the specifics of your emergency department visit. If you don't have a primary care physician on staff, we will provide you with a referral. We always advise you to contact your personal physician following an emergency department visit to inform them of the circumstance of the visit and for follow-up with them and/or the need for any referrals to a consulting specialist. The emergency department will also refer you to a specialist when appropriate. This referral assures that you have the opportunity for follow-up care with a specialist. All of these measure are taken in an effort to provide you with optimal care, which includes your follow-up. Under all circumstances we always encourage you to contact your private pete nix who remains a resource for coordinating your care. When calling for follow-up care, please make the office aware that this follow-up is from your recent emergency room visit. If for any reason you are refused follow-up, please contact the [facility] Emergency Department at and asked to speak to the emergency department charge nurse. [facility] [address] [place] [id number] [address] 1. Take medication as prescribed. Slowly work on decreasing the dose of Afrin with a goal to stop taking this medication as discussed. 2. Follow-up with your primary care provider as discussed. Return to the ED as needed and as discussed. Sepsis Event Note (ED) - Evaluation Sepsis Screening Result: No Definite Risk - Focused Exam Vital Signs: Vital Signs Temp Pulse Resp BP Pulse Ox 07/18/20 14:46 77 16 151/96 H 95 07/18/20 11:06 96.6 F L 89 18 151/94 H 93 L
[2020-07-18 14:46] VITALS: BP 151/96; PULSE 77
[2020-07-18] MEDS ORDERED: Iopamidol 755 MG/ML 500 ML Multipack Bottle IVPUSH STA (15:40)
== END 2020-07-18 14:48 | disposition home or self-care (01) ==
LOC: MW.ED 10:31
DX: R42 Dizziness and giddiness (principal); Z79.899 Other long term (current) drug therapy
CPT/HCPCS: 36415; 70450; 70496; 70498; 71045; 80053; 84484; 85025; 93005; 99284; A9270; J7030; Q9967